=== PATIENT | female | born 1985 | race Caucasian/White ===

== ENCOUNTER → 2017-06-02 | Outpatient (CLI) | payer MEDICAID | LOC: M OUTALCOH 13:20 | PROVIDERS: ATTEND Psychiatry & Neurology Psychiatry | DX: F14.20 Cocaine dependence, uncomplicated (principal) ==

== ENCOUNTER 2017-08-19 16:00 | Outpatient (RCR) | payer SELFPAY | END 2017-09-07 | LOC: M OUTALCOH 08-21 16:00 | DX: F14.20 Cocaine dependence, uncomplicated (principal); F17.200 Nicotine dependence, unspecified, uncomplicated; F11.20 Opioid dependence, uncomplicated ==

== ENCOUNTER 2017-09-18 16:00 | Outpatient (RCR) | payer SELFPAY | END 2017-10-08 | LOC: M OUTALCOH 09-25 16:00 | DX: F14.20 Cocaine dependence, uncomplicated (principal); F17.200 Nicotine dependence, unspecified, uncomplicated; F11.20 Opioid dependence, uncomplicated ==

== ENCOUNTER 2017-10-09 16:00 | Outpatient (RCR) | payer SELFPAY | END 2017-11-05 | LOC: M OUTALCOH 10-14 16:00 | DX: F14.20 Cocaine dependence, uncomplicated (principal); F17.200 Nicotine dependence, unspecified, uncomplicated; F11.20 Opioid dependence, uncomplicated ==

== ENCOUNTER 2017-10-13 12:13 | Emergency (ER) | payer SELFPAY | END 2017-10-13 14:45 | disposition left against medical advice (07) | LOC: M ED 12:13 | DX: Z53.21 Procedure and treatment not carried out due to patient leaving prior to being seen by health care provider (principal) ==

== ENCOUNTER 2017-11-11 16:00 | Outpatient (RCR) | payer SELFPAY | END 2017-12-06 | LOC: M OUTALCOH 12-03 14:00 | DX: F14.20 Cocaine dependence, uncomplicated (principal); F17.200 Nicotine dependence, unspecified, uncomplicated; F11.20 Opioid dependence, uncomplicated | CPT/HCPCS: 90834 ==

== ENCOUNTER → 2017-11-18 | Outpatient (REF) | payer SELFPAY ==
[2017-11-18 17:14] LABS: INFLUENZA A AMPLIFICATION POSITIVE (NEGATIVE); INFLUENZA B AMPLIFICATION NEGATIVE (NEGATIVE)
== END ==
LOC: M LAB REF 16:16
DX: J11.1 Influenza due to unidentified influenza virus with other respiratory manifestations (principal)
CPT/HCPCS: 87502

== ENCOUNTER 2017-12-19 10:28 | Outpatient (RCR) | payer MEDICAID, SELFPAY | END 2018-01-05 | LOC: M OUTALCOH 10:28 | DX: F14.20 Cocaine dependence, uncomplicated (principal); F17.200 Nicotine dependence, unspecified, uncomplicated; F11.20 Opioid dependence, uncomplicated | CPT/HCPCS: 90834 ==

== ENCOUNTER 2018-01-23 15:35 | Outpatient (RCR) | payer MEDICAID | END 2018-02-05 | LOC: M OUTALCOH 02-03 09:00 | DX: F14.20 Cocaine dependence, uncomplicated (principal); F17.200 Nicotine dependence, unspecified, uncomplicated; F11.20 Opioid dependence, uncomplicated ==

== ENCOUNTER 2018-02-09 11:46 | Outpatient (RCR) | payer MEDICAID | END 2018-03-07 | LOC: M OUTALCOH 02-18 08:45 | DX: F14.20 Cocaine dependence, uncomplicated (principal); F17.200 Nicotine dependence, unspecified, uncomplicated; F11.20 Opioid dependence, uncomplicated ==

== ENCOUNTER 2018-03-09 10:33 | Outpatient (RCR) | payer MEDICAID | END 2018-04-07 | LOC: M OUTALCOH 10:33 | DX: F14.20 Cocaine dependence, uncomplicated (principal); F17.200 Nicotine dependence, unspecified, uncomplicated; F11.20 Opioid dependence, uncomplicated ==

== ENCOUNTER 2018-11-06 13:52 | Emergency (ER) | payer MEDICAID ==
[~2018-11-06] VITALS: Ht 165.1 cm; Wt 59.1 kg
[2018-11-06 13:52] VITALS: BP 134/97
[~2018-11-06 13:52] MED LIST: GABA-845 PO
[2018-11-06] MEDS ORDERED: LIDOCAINE 2% W/EPIN INJ 20ML **PRES FREE As Ordered ONE (14:20)
[2018-11-06] MEDS ORDERED: LIDOCAINE 2% W/EPIN INJ 20ML **PRES FREE INJ ONE (14:30)
[2018-11-06] MEDS ORDERED: CEPHALEXIN 500 MG CAP PO ONE (15:00)
[2018-11-06] MEDS ORDERED: DIFL150T PO (15:10)
[2018-11-06] MEDS ORDERED: KEFL500C17 PO (15:10)
== END 2018-11-06 15:17 | disposition home or self-care (01) ==
LOC: M ED 13:52
DX: S71.111A Laceration without foreign body, right thigh, initial encounter (principal); W26.0XXA Contact with knife, initial encounter; Y92.019 Unspecified place in single-family (private) house as the place of occurrence of the external cause

== ENCOUNTER 2019-01-24 17:11 | Inpatient (IN) | payer MEDICAID, OTHER ==
[~2019-01-24] VITALS: Ht 165.1 cm; Wt 59.1 kg
[~2019-01-24 17:11] MED LIST changes: +DIFL150T PO; +KEFL500C17 PO
[2019-01-24] MEDS ORDERED: RISP0.5T3 PO (17:22)
[2019-01-24] MEDS ORDERED: SERT-138 PO (17:22)
[2019-01-24] MEDS ORDERED: BUPR8SUB SL (17:22)
[2019-01-24 18:25] LABS: HEMATOCRIT 39.3 % (36.0-47.0); HEMOGLOBIN 13.2 g/dl (12.0-15.5); MEAN CORPUSCULAR HEMOGLOBIN 30.8 pg (27.0-33.0); MEAN CORPUSCULAR HGB CONC 33.6 g/dl (32.0-36.5); MEAN CORPUSCULAR VOLUME 91.6 fl (80.0-96.0); PLATELET COUNT, AUTOMATED 272 10^3/uL (150-450); RED BLOOD COUNT 4.29 10^6/uL (4.00-5.40)
[2019-01-24 18:47] LABS: AMPHETAMINES LEVEL URINE NEGATIVE (NEGATIVE); BARBITURATES URINE NEGATIVE (NEGATIVE); BENZODIAZEPINES URINE NEGATIVE (NEGATIVE); CANNABINOIDS URINE POSITIVE (NEGATIVE); COCAINE METABOLITE URINE NEGATIVE (NEGATIVE); METHADONE URINE NEGATIVE (NEGATIVE); OPIATES URINE POSITIVE (NEGATIVE); PHENCYCLIDINE URINE NEGATIVE (NEGATIVE)
[2019-01-24 19:30] LABS: ACETAMINOPHEN LEVEL < 2.0 UG/ML (10.0-30.0); ALBUMIN 4.1 GM/DL (3.2-5.2); ALT/SGPT 21 U/L (12-78); BILIRUBIN,DIRECT 0.1 MG/DL (0.0-0.2); BILIRUBIN,TOTAL 0.6 MG/DL (0.2-1.0); BLOOD UREA NITROGEN 10 MG/DL (7-18); CARBON DIOXIDE LEVEL 28 MEQ/L (21-32); CHLORIDE LEVEL 103 MEQ/L (98-107); CREATININE FOR GFR 0.84 MG/DL (0.55-1.30); ETHYL ALCOHOL (ETHANOL) < 0.003 % (0.000-0.010); GLOMERULAR FILTRATION RATE > 60.0 (>60); GLUCOSE, FASTING 95 MG/DL (70-100); SALICYLATE LEVEL 4.1 MG/DL (5.0-30.0); SODIUM LEVEL 138 MEQ/L (136-145); THYROID STIMULATING HORMONE 0.374 uIU/ML (0.358-3.740); TOTAL PROTEIN 8.3 GM/DL (6.4-8.2)
[2019-01-24 19:47] LABS: HCG, SERUM QUALITATIVE NEGATIVE (NEGATIVE)
[2019-01-24] MEDS ORDERED: MOM 30ML SUSPENSION UDC PO PRN (20:30)
[2019-01-24] MEDS ORDERED: MAALOX 30 ML SUSP *UDC PO PRN (20:30)
[2019-01-24] MEDS ORDERED: IBUP200C29 PO (21:20)
[2019-01-24 22:07] VITALS: BP 134/80
[2019-01-24] MEDS: traZODone 50 MG TAB PO PRN (22:45)
[2019-01-24] MEDS: ACETAMINOPHEN TAB 650MG DOSE (2X325MG) PO PRN (22:46)
[2019-01-25 06:48] VITALS: BP 119/73
[2019-01-25] MEDS: NICOTINE 21MG/24HR 1 EA TRANSDERMAL TD PRN (09:31)
--- NOTE | 2019-01-25 10:04 | HPEPDOC ---
General Date of Admission January 24, 2019 at 20:17 Attending Physician: BRYAN BROWER MD Chief Complaint The patient is a 33-year-old female admitted with a reason for visit of Unspecified Depressive D/O. Source: Patient, RN/MD Exam Limitations: No limitations Timing/Duration: Unsure Severity: Moderate Associated Symptoms: Rash History of Present Illness Patient is a 33 year old patient, with past medical history significant for polysubstance abuse with cocaine and heroine, and also nicotine dependence, who presents to the emergency room on account of suicidal ideation. It is documen kelsey. Patient was threatening to hurt self with her knife at home and girlfriend called the police. On police arrival, patient was agitated and looked aggressive. On evaluation, she complains of bilateral hand swelling and lesions for 1 week. Patient reports she had a relapse with heroine use 4 days ago. She denies sharing needles with anyone. On admit HIV and hepatitis C panels were offered and patient declined this morning she is willing to be tested Home Medications Scheduled Buprenorphine HCl (Buprenorphine HCl) 8 Mg Tab.subl, 8 MG SL BID for , (Reported) Risperidone (Risperidone) 0.5 Mg Tablet, 0.5 MG PO DAILY, (Reported) Sertraline HCl (Sertraline HCl) 100 Mg Tablet, 200 MG PO DAILY, (Reported) Scheduled PRN Ibuprofen (Ibuprofen) 200 Mg Capsule, 800 MG PO Q8H PRN for PAIN, (Reported) Allergies Coded Allergies: No Known Allergies (Unverified , 10/13/17) Past Medical History Medical History Heroine use Depression Anxiety Nicotine dependence Cocaine abuse Alcohol abuse Surgical History Femoral laceration repair Family History Denies family history Social History Smokes half a pack of cigarettes per day, denies alcohol use, admits to prior cocaine abuse and less heroin use was 4 days ago. A-FIB/CHADSVASC A-FIB History Current/History of A-Fib/PAF?: No Current Oral Anticoagulant The: No Review of Systems Other systems A 10 point pertinent ROS was completed, negative except as noted in the history of presenting illness Physical Examination General Exam: Positive: Alert, No Acute Distress Eye Exam: Positive: PERRLA, EOMI ENT Exam: Positive: Atraumatic, Mucous membr. moist/pink Neck Exam: Positive: Supple, +2 carotid pulse wo bruit; Negative: JVD, thyromegaly Chest Exam: Positive: Clear to auscultation, Normal air movement; Negative: Rales, Rhonchi, Wheezing Heart Exam: Positive: Rate Normal, Regular Rhythm, Normal S1, Normal S2 Abdomen Exam: Positive: Normal bowel sounds, Soft; Negative: Tenderness, Hepatospenomegaly Extremity Exam: Positive: Normal pulses; Negative: Clubbing, Cyanosis, Edema, Tenderness Skin Exam: Positive: Nl turgor and temperature, Rash, Lesion (to bilateral hands with erythema and swelling. Also present to legs. Needle track pfeiffer present to left elbow) Neuro Exam: Positive: Normal Speech Psych Exam: Positive: Mental status NL, Mood NL Vital Signs Vital Signs Date Time Temp Pulse Resp B/P (MAP) Pulse Ox O2 Delivery O2 Flow Rate FiO2 01/25/19 06:48 97.5 68 14 119/73 (88) 01/24/19 22:07 98 01/24/19 21:01 Room Air Laboratory Data Labs 24H Laboratory Tests 2 01/24/19 18:14: Nucleated Red Blood Cells % (auto) 0.0, Anion Gap 7L, Glomerular Filtration Rate > 60.0, Calcium Level 9.0, Aspartate Amino Transf (AST/SGOT) 31, Alanine Aminotransferase (ALT/SGPT) 21, Alkaline Phosphatase 102, Total Bilirubin 0.6, Direct Bilirubin 0.1, Total Protein 8.3H, Albumin 4.1, Albumin/Globulin Ratio 0.98L, Thyroid Stimulating Hormone (TSH) 0.374, Human Chorionic Gonadotropin, Qual NEGATIVE, Salicylates Level 4.1L, Urine Amphetamines Screen NEGATIVE, Urine Benzodiazepines Screen NEGATIVE, Urine Opiates Screen POSITIVEH, Urine Methadone Screen NEGATIVE, Acetaminophen Level < 2.0L, Urine Barbiturates Screen NEGATIVE, Urine Phencyclidine Screen NEGATIVE, Urine Cocaine Metabolite Screen NEGATIVE, Urine Cannabinoids Screen POSITIVEH, Ethyl Alcohol Level < 0.003 CBC/BMP Laboratory Tests 01/24/19 18:14 Red Blood Count 4.29, Mean Corpuscular Volume 91.6, Mean Corpuscular Hemoglobin 30.8, Mean Corpuscular Hemoglobin Concent 33.6, Red Cell Distribution Width 13.3 Assessment/Plan Cellulitis -Started on antibiotic therapy with Keflex -Blood culture given reported continued heroin use Heroine abuse on Suboxone -Management by primary team Suicide Ideation -Management by primary team DVT prophylaxis -patient is frequently ambulatory and no DVT prophylaxis indicated at this time Plan / VTE VTE Prophylaxis Ordered?: No VTE Exclusion Mechanical Proph: Low Risk for VTE NITZA WALKER January 25, 2019 10:04
[2019-01-25] MEDS: CEPHALEXIN 500 MG CAP PO SCH ×2 (14:28→18:23)
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
[2019-01-25] MEDS: BUPRENORPHINE/NALOXONE 8-2MG SUBLINGUAL TABLET(SUBOXONE) SL SCH ×2 (16:59→21:17)
[2019-01-25 18:07] VITALS: BP 118/73
[2019-01-25] MEDS: ACETAMINOPHEN TAB 650MG DOSE (2X325MG) PO PRN (18:23)
[2019-01-25] MEDS: traZODone 50 MG TAB PO PRN (21:58)
[2019-01-26] MEDS: CEPHALEXIN 500 MG CAP PO SCH ×6 (00:22→23:48)
[2019-01-26 06:41] VITALS: BP 98/60
[2019-01-26] MEDS: ADDERALL 5 MG TAB PO SCH (08:38)
[2019-01-26] MEDS: SERTRALINE 100 MG TAB PO SCH (08:39)
[2019-01-26] MEDS: NICOTINE 21MG/24HR 1 EA TRANSDERMAL TD PRN (08:41)
[2019-01-26] MEDS: BUPRENORPHINE/NALOXONE 8-2MG SUBLINGUAL TABLET(SUBOXONE) SL SCH ×2 (10:02→16:14)
--- NOTE | 2019-01-26 14:59 | MHIPNPDOC ---
[facility] Progress Note Progress Note DATE OF SERVICE: 01/26/19 HISTORY: Chief Complaint "I was trying to leave, but she won't let me go. Now we're OK" History of Present Illness HISTORY OF THE PRESENT ILLNESS: Patient is a 33 -year-old , female, who according to the ED report: " Pt brought into ED via [facility] by Shawn Ordoñez. Pt's g/f called police stating that pt was threatening to harm herself with a knife. Per police, when arrived at the residence, pt was aggitated and standing on the front porch looking as if she was going to try and fight them. Shawn Kevin's did report there was a little bit of a "tussel" but no major event took place. Police stated they never saw a knife while they were there and pt denied being SI/HI. When interviewing pt, she disclosed relationship problems with her girlfriend, stating that she is trying to leave the relationship but when she tries her g/f goes "crazy" and "doesn't like being alone" so she "makes up these stories about me." Pt states she never said anything about wanting to harm herself and has no hx of SI, intent, and/or attempts. Pt has no inpatient mental health stays. Pt is dx with anxiety and depression. Is seen at [facility] by Drew 2x/week and is schedule to see her this upcoming week. She see's Theron Aj for psychaitry at [facility] and is currently on respirdone, zoloft, and suboxone. This interviewer asked pt if it was okay to contact pt's g/f for collateral in formation about the situation that happened today. Pt requested no information be given to her g/f and for ED staff to not contact g/f VITAL SIGNS: See below. NEW TEST RESULTS: See below CURRENT MEDICATIONS: See below. MENTAL STATUS EXAMINATION: Patient is a 33 year old female, who is alert, cooperative, pleasant, dressed in hospital clothes. Speech: Is spontaneous and fluent, normal rate, rhythm, tone and volume. Language skills are good. Thought processes including: intact, logical, linea. Thought content: goal orientated, wants to go back to work with [employer], wants to go to marital counseling with her GF and has considered marriage and children in the future.. Abstract reasoning, and computation: good ability to abstract. Description of associations: intact. Description of abnormal or psychotic thoughts: denies SI, denies HI, denies AV hallucinations, denies thought delusions. Judgment: good Insight: improving. Orientation: x 4. Recent and remote memory: intact. Attention span and concentration: good. Language: Australian. Fund of knowledge: full. Mood: euthymic. Affect: congruent with mood, full, appropriate. DIAGNOSES: 1. Major Depressive Disorder, recurrent 2. Heroin use disorder ASSESSMENT: Patient is less anxious, her mood and affect are brighter, she is not suicidal, she wants to live and has lots of plans for the future. she is appreciative of her GF, she says she is a great support and she tells me she will go to NA meetings, she will stay away from drugs, she wants to do some artsy, crafty stuff at home because she found out that she likes it and it keeps her thoughts away from the darkness. she wants to leave, she wants to go back to work for [employer], she would like to make a career within that [employer], she likes what she does. MANAGEMENT PLAN: Discharge home tomorrow TIME SPENT: 20 minutes. Vital Signs Vital Signs Date Time Temp Pulse Resp B/P (MAP) Pulse Ox O2 Delivery O2 Flow Rate FiO2 01/26/19 09:04 Room Air 01/26/19 06:41 98.2 58 14 98/60 (73) 01/24/19 22:07 98 Current Medications Current Medications Acetaminophen (Tylenol Tab) 650 mg Q6HP PRN PO HEADACHE or DISCOMFORT Last administered on 01/25/19at 18:23; Start 01/24/19 at 20:30 Al Hydrox/Mg Hydrox/Simethicone (Mylanta) 30 ml Q4HP PRN PO HEARTBURN/INDIGESTION; Start 01/24/19 at 20:30 Amphetamine/ Dextroamphetamine (Adderall) 20 mg QAM PO Last administered on 01/26/19at 08:38; Start 01/26/19 at 09:00 Buprenorphine/ Naloxone (Suboxone 8/2mg) 1 tab BID SL Last administered on 01/26/19at 10:02; Start 01/25/19 at 16:00 Cephalexin Monohydrate (Keflex) 500 mg Q6H PO Last administered on 01/26/19at 12:02; Start 01/25/19 at 12:00; Stop 01/30/19 at 11:59 Home Med (Med Rec Complete!) ASDIRECTED XX ; Start 01/24/19 at 21:30; Stop 01/24/19 at 21:30; Status DC Magnesium Hydroxide (Milk Of Magnesia) 30 ml DAILYPRN PRN PO CONSTIPATION; Start 01/24/19 at 20:30 Nicotine (Nicoderm Cq 21mg) 1 patch DAILY TD ; Start 01/27/19 at 09:00 Nicotine (Nicoderm Cq 21mg) 1 patch DAILY PRN TD craving Last administered on 01/26/19at 08:41; Start 01/24/19 at 20:30; Stop 01/26/19 at 10:58; Status DC Sertraline HCl (Zoloft) 200 mg DAILY PO Last administered on 01/26/19at 08:39; Start 01/26/19 at 09:00 Trazodone HCl (Desyrel) 50 mg QHSP PRN PO INSOMNIA Last administered on 01/25/19at 21:58; Start 01/24/19 at 20:30 Allergies Coded Allergies: No Known Allergies (Unverified , 10/13/17) A-FIB/CHADSVASC A-FIB History Current/History of A-Fib/PAF?: No Current Oral Anticoagulant The: No Age/Risk Factor Scoring CHADSVASC: CHADSVASC Response (Comments) Value Age Risk Factor Age < 65 years old 0 Gender Risk Factor Female 1 Hx of CHF No 0 Hx of HTN No 0 Hx of Stroke/TIA/or VTE No 0 Hx of Diabetes No 0 Hx of Vascular Disease No 0 Total 1 Treatment Treatment ordered: NONE Reason Anticoagulant not given: Not indicated/[id number] FELICITY MAE MD January 26, 2019 14:58
[2019-01-26] MEDS: ACETAMINOPHEN TAB 650MG DOSE (2X325MG) PO PRN (16:15)
[2019-01-26 18:00] VITALS: BP 126/78
[2019-01-26] MEDS: traZODone 50 MG TAB PO PRN (21:01)
[2019-01-27] MEDS: CEPHALEXIN 500 MG CAP PO SCH (06:29)
[2019-01-27 06:52] VITALS: BP 101/55
[2019-01-27] MEDS: BUPRENORPHINE/NALOXONE 8-2MG SUBLINGUAL TABLET(SUBOXONE) SL SCH (08:27)
[2019-01-27] MEDS: ADDERALL 5 MG TAB PO SCH (08:27)
[2019-01-27] MEDS: SERTRALINE 100 MG TAB PO SCH (08:28)
[2019-01-27] MEDS ORDERED: CEPH500C PO (08:35)
[2019-01-27] MEDS ORDERED: SERT-138 PO (08:35)
[2019-01-27] MEDS ORDERED: Amphetamine/Dextroamphetamine PO (08:35)
[2019-01-27] MEDS ORDERED: TRAZO50TA PO (08:35)
[2019-01-27] MEDS ORDERED: NICO21PAT TD (08:35)
[2019-01-27] MEDS ORDERED: NICOTINE 21MG/24HR 1 EA TRANSDERMAL TD SCH (09:00)
[2019-01-27 14:11] LABS: HEPATITIS C QUANTITATION HCV Not Detected IU/mL (.)
--- NOTE | 2019-01-27 18:46 | MHDSPDOC ---
[facility] Discharge Summary Discharge Summary DATE OF ADMISSION: January 24, 2019 at 20:17 DATE OF DISCHARGE: January 27, 2019 at 11:40 DISCHARGE DIAGNOSES: 1. Major Depressive Disorder, recurrent 2. Heroin use disorder REASON FOR ADMISSION: HISTORY: Chief Complaint "I was trying to leave, but she won't let me go. Now we're OK" HISTORY OF THE PRESENT ILLNESS: Patient is a 33 -year-old , female, who according to the ED report: " Pt brought into ED via [facility] by Shawn Ordoñez. Pt's g/f called police stating that pt was threatening to harm herself with a knife. Per police, when arrived at the residence, pt was aggitated and standing on the front porch looking as if she was going to try and fight them. Shawn Kevin's did report there was a little bit of a "tussel" but no major event took place. Police stated they never saw a knife while they were there and pt denied being SI/HI. When interviewing pt, she disclosed relationship problems with her girlfriend, stating that she is trying to leave the relationship but when she tries her g/f goes "crazy" and "doesn't like being alone" so she "makes up these stories about me." Pt states she never said anything about wanting to harm herself and has no hx of SI, intent, and/or attempts. Pt has no inpatient mental health stays. Pt is dx with anxiety and depression. Is seen at [facility] by Drew 2x/week and is schedule to see her this upcoming week. She see's Theron Stewart for psychaitry at [facility] and is currently on respirdone, zoloft, and suboxone. This interviewer asked pt if it was okay to contact pt's g/f for collateral information about the situation that happened today. Pt requested no information be given to her g/f and for ED staff to not contact g/f " CONSULTANTS INVOLVED: None but Claudy Sheldon Np, started her on oral antibiotics for soft tissue infection in her right hand TREATMENT AND PROGRESS ON THE UNIT : When this commercial insurance underwriter interviewed the patient yesterday, she said she had over reacted when she had an argument with her current GF. She said that her GF has been an incredible support for her and that she used IV heroin last week. She shows me where she has needle tracks on her hand which is the hard that is swollen and erythematous. She has denied suicidal ideeeation but she reported symptoms of depression for a long period of time. She described a very difficult childhood, adolescence and young adulthood with mom that uses drugs and a alcoholic father. She mentioned that she left the house because her mother kept using drugs and she couldn't continue to see her like that. she ended up being homeless and using drugs in the streets of [place]. She says that her GF has been very understanding of hr past and her substance abuse and she has had the pportunity of taking to her GF and her GF is not upset with her anymore. She wants to have a serious relationship with her, they have been together for 3 years and she would like to get to her GF in the future and would like to have children with her. She says she likes her job and she would like to continue working for the same company but if she shows that she is reliable as a worker, maybe they can promote her. Upon admission she said she was taking Buprenorphine 04/09 twice/day, she has been going to DR. Davalos for her buprenorphine treatment. She was started on Sertraline 200 mgs PO daily. She asked to be started on Adderall 20 mgs PO BID and she got it in here but the scripts didn't go through and she said it was because she had received that medication recently and she still had it at home. She was taking Risperdal but she didn't show any signs of psychosis or angry/impulsive/aggressive behavior while she was at our unit, therefore this commercial insurance underwriter decided not to order it. She had a good response to medications, she didn't develop side effects to them. She was stable to be discharged, she was not homicidal, not suicidal and not psychotic at the time of her discharge. She was future orientated, wanted to go back to work today. HOSPITAL COURSE: As above DISCHARGE ASSESSMENT: She had a good response to medications, she didn't develop side effects to them. She was stable to be discharged, she was not homicidal, not suicidal and not psychotic at the time of her discharge. She was future orientated, wanted to go back to work today. MENTAL STATUS EXAMINATION ON DISCHARGE: General Appearance: unkempt, appears stated age, hospital scrubs/clothing, other (needle tracks and cellulitis on her right hand) Build: average Demeanor: average Eye Contact: average Activity: anxious Behavior: cooperative Speech: clear, spontaneous, reg/rate,rhythm,volume Mood: euthymic, anxious Affect: full, appropriate, congruent, anxious Thought Process: logical/linear Thought Content (Delusions): denies SI, HI, AVH, denies paranoid, grandiose or bizarre delusions Thought Content (Other): denies OCD symptoms, denies phobias Thought Content (Aggressive): none reported Perception (Hallucinations): none reported Perception (Other): none reported Cognition (Impairment of): none reported Cognition(Intelligence Est.): average Oriented: Awake, Alert, Oriented times three Insight: fair Judgment: Poor Psychosis: Denies Diagnoses 1. Major Depressive Disorder, recurrent 2. Heroin use disorder MEDICATIONS ON DISCHARGE: Scheduled Buprenorphine HCl (Buprenorphine HCl) 8 Mg Tab.subl, 8 MG SL BID for , (Reported) Cephalexin (Cephalexin) 500 Mg Capsule, 500 MG PO Q6H for soft tissue infection, #28 Nicotine (Nicotine Patch) 21 Mg Patch.td24, 1 PATCH TD DAILY for nicotine cravings, #7 Risperidone (Risperidone) 0.5 Mg Tablet, 0.5 MG PO DAILY, (Reported) Sertraline HCl (Sertraline HCl) 100 Mg Tablet, 200 MG PO DAILY for depression, #14 [Amphetamine/Dextroamphetamine] 5 MG TAB, 20 MG PO QAM for adhd, #28 Scheduled PRN Ibuprofen (Ibuprofen) 200 Mg Capsule, 800 MG PO Q8H PRN for PAIN, (Reported) Trazodone HCl (Trazodone HCl) 50 Mg Tablet, 50 MG PO QHSP PRN for INSOMNIA, #7 PLAN/FOLLOWUP ARRANGEMENTS: Follow Up Care Education Label * Medical * Medical Follow Up [facility] * Established With This Provider No * Therapist DR. JEFF * Date Feb 08, 2019 * Time 15:30 * Address of Clinic or Practice [address] [facility] [facility] [address] * Follow Up Care Education Label * Mental Health Appt 1 * [facility] * Established With This Provider Yes * Therapist PABLO * Date February 02, 2019 * Time 11:30 * Address of Clinic or Practice [address] [place] [address] * Follow Up Care Education Label * Chemical Dependency Appt1 * Chemical Dependency Dr. Davalos * Established With This Provider Yes * Therapist DR. DAVALOS * Date January 28, 2019 * Time 08:40 * Follow Up Care Education Label * Mental Health Appt 2 * [facility] * Established With This Provider No * Therapist KEON STEWART * Date Mar 02, 2019 * Time The amount of time spent in the coordination of care for this patient was approximately 30 minutes. Vital Signs/I&Os Vital Signs Date Time Temp Pulse Resp B/P (MAP) Pulse Ox O2 Delivery O2 Flow Rate FiO2 01/27/19 08:35 Room Air 01/27/19 06:52 98.0 61 12 101/55 (70) 01/24/19 22:07 98 Laboratory Data Microbiology Microbiology 01/25/19 Blood Culture - Preliminary, Resulted Medications Scheduled Buprenorphine HCl (Buprenorphine HCl) 8 Mg Tab.subl, 8 MG SL BID for , (Reported) Cephalexin (Cephalexin) 500 Mg Capsule, 500 MG PO Q6H for soft tissue infection, #28 Nicotine (Nicotine Patch) 21 Mg Patch.td24, 1 PATCH TD DAILY for nicotine cravings, #7 Risperidone (Risperidone) 0.5 Mg Tablet, 0.5 MG PO DAILY, (Reported) Sertraline HCl (Sertraline HCl) 100 Mg Tablet, 200 MG PO DAILY for depression, #14 [Amphetamine/Dextroamphetamine] 5 MG TAB, 20 MG PO QAM for adhd, #28 Scheduled PRN Ibuprofen (Ibuprofen) 200 Mg Capsule, 800 MG PO Q8H PRN for PAIN, (Reported) Trazodone HCl (Trazodone HCl) 50 Mg Tablet, 50 MG PO QHSP PRN for INSOMNIA, #7 Allergies Coded Allergies: No Known Allergies (Unverified , 10/13/17) FELICITY MAE MD January 27, 2019 18:25
--- NOTE | 2019-01-28 14:00 | IPN ---
DATE: 01/26/2019 33-year-old female on the inpatient mental health unit with a history of intravenous (IV) heroin abuse who has needle track pfeiffer on both lower arms, some reddened, tender. She was started on Keflex. She is showing improvement. She states they feel better. Otherwise review of systems was negative. PHYSICAL EXAM: 33-year-old cooperative female in no acute distress. Blood pressure 118/73, pulse 77, respirations 16, temperature 98.9. Patient is alert and oriented times three. Pupils equal and reactive to light. Extraocular movements intact. Pharynx: Tongue and gums pink and moist. Tongue is midline. Neck is supple without lymphadenopathy. No thyromegaly. No goiter. Carotids 2+ without bruit. Jugular venous pressure is below clavicles. Chest is clear to auscultation without wheeze or retractions. Heart is regular. Abdomen benign. Bowel sounds are positive. Genital/Rectal: Not done. Extremities: No cyanosis, clubbing or edema. Both lower arms have reddened areas and rash from track pfeiffer, left more than right. No drainage noted. Hand debarker operator equal. Peripheral pulses equal and palpable bilaterally. IMPRESSION AND PLAN: Cellulitis, less reddened. No drainage. Improving with Keflex, continue. Followup on blood cultures. Preliminary show gram-positive cocci in clusters. Heroin abuse. Management by psychiatry. Acute psychiatric issues. Per psychiatry. Continue Keflex. Followup on blood culture.
== END 2019-01-27 11:40 | disposition home or self-care (01) | DRG 751 ==
LOC: M ED 17:11 → M ED INP 20:17 → M PSY 21:05
PROVIDERS: ADMIT Psychiatry & Neurology Child & Adolescent Psychiatry; ATTEND Psychiatry & Neurology Psychiatry
DX: F33.9 Major depressive disorder, recurrent, unspecified (principal); R45.851 Suicidal ideations; F11.90 Opioid use, unspecified, uncomplicated; Z79.899 Other long term (current) drug therapy; F41.9 Anxiety disorder, unspecified; L03.113 Cellulitis of right upper limb; L03.114 Cellulitis of left upper limb

== ENCOUNTER 2019-12-03 20:01 | Emergency (ER) | payer MEDICAID, OTHER ==
[~2019-12-03] VITALS: Ht 165.1 cm; Wt 59.1 kg
[~2019-12-03 20:01] MED LIST changes: +Amphetamine/Dextroamphetamine PO; +BUPR8SUB SL; +CEPH500C PO; +IBUP200C29 PO; +NICO21PAT TD; +RISP0.5T3 PO; +SERT-138 PO; +TRAZ1TAB10 PO
[2019-12-03 22:17] LABS: AMPHETAMINES LEVEL URINE NEGATIVE (NEGATIVE); BARBITURATES URINE NEGATIVE (NEGATIVE); BENZODIAZEPINES URINE NEGATIVE (NEGATIVE); CANNABINOIDS URINE POSITIVE (NEGATIVE); COCAINE METABOLITE URINE POSITIVE (NEGATIVE); METHADONE URINE NEGATIVE (NEGATIVE); OPIATES URINE POSITIVE (NEGATIVE); PHENCYCLIDINE URINE NEGATIVE (NEGATIVE)
[2019-12-03 23:00] LABS: HEMATOCRIT 42.1 % (36.0-47.0); HEMOGLOBIN 14.3 g/dl (12.0-15.5); MEAN CORPUSCULAR HEMOGLOBIN 31.2 pg (27.0-33.0); MEAN CORPUSCULAR VOLUME 91.7 fl (80.0-96.0); PLATELET COUNT, AUTOMATED 255 10^3/uL (150-450); RED BLOOD COUNT 4.59 10^6/uL (4.00-5.40)
[2019-12-03 23:27] LABS: ACETAMINOPHEN LEVEL < 2.0 UG/ML (10.0-30.0); ALBUMIN 4.6 GM/DL (3.2-5.2); ALT/SGPT 16 U/L (12-78); BILIRUBIN,DIRECT 0.2 MG/DL (0.0-0.2); BILIRUBIN,TOTAL 0.6 MG/DL (0.2-1.0); BLOOD UREA NITROGEN 9 MG/DL (7-18); CALCIUM LEVEL 9.4 MG/DL (8.5-10.1); CARBON DIOXIDE LEVEL 26 MEQ/L (21-32); CHLORIDE LEVEL 102 MEQ/L (98-107); CREATININE FOR GFR 0.78 MG/DL (0.55-1.30); ETHYL ALCOHOL (ETHANOL) < 0.003 % (0.000-0.010); GLOMERULAR FILTRATION RATE > 60.0 (>60); GLUCOSE, FASTING 83 MG/DL (70-100); SALICYLATE LEVEL 4.7 MG/DL (5.0-30.0); SODIUM LEVEL 139 MEQ/L (136-145); THYROID STIMULATING HORMONE 0.457 uIU/ML (0.358-3.740); TOTAL PROTEIN 8.1 GM/DL (6.4-8.2)
[2019-12-04 00:25] VITALS: BP 143/89
== END 2019-12-04 00:27 | disposition left against medical advice (07) ==
LOC: M ED 20:01
DX: F19.10 Other psychoactive substance abuse, uncomplicated (principal); F91.9 Conduct disorder, unspecified; S11.91XA Laceration without foreign body of unspecified part of neck, initial encounter; S50.811A Abrasion of right forearm, initial encounter; X58.XXXA Exposure to other specified factors, initial encounter; Y92.89 Other specified places as the place of occurrence of the external cause; F33.9 Major depressive disorder, recurrent, unspecified; F41.9 Anxiety disorder, unspecified; Z79.899 Other long term (current) drug therapy
CPT/HCPCS: 36415; 80048; 80076; 80307; 84443; 85027; 99284; G0480

== ENCOUNTER → 2020-02-11 | Outpatient (CLI) | payer OTHER, MEDICAID ==
[2020-02-11 15:26] LABS: HEMATOCRIT 44.5 % (36.0-47.0); MEAN CORPUSCULAR HEMOGLOBIN 31.3 pg (27.0-33.0); MEAN CORPUSCULAR HGB CONC 33.7 g/dl (32.0-36.5); MEAN CORPUSCULAR VOLUME 92.7 fl (80.0-96.0); PLATELET COUNT, AUTOMATED 291 10^3/uL (150-450); WHITE BLOOD COUNT 9.1 10^3/uL (4.0-10.0)
[2020-02-11 15:44] LABS: HEMOGLOBIN A1c 5.9 %
[2020-02-11 16:01] LABS: ALBUMIN 4.2 GM/DL (3.2-5.2); ALT/SGPT 23 U/L (12-78); BILIRUBIN,TOTAL 0.2 MG/DL (0.2-1.0); BLOOD UREA NITROGEN 12 MG/DL (7-18); CALCIUM LEVEL 9.4 MG/DL (8.5-10.1); CARBON DIOXIDE LEVEL 30 MEQ/L (21-32); CHLORIDE LEVEL 103 MEQ/L (98-107); CHOLESTEROL LEVEL 155 MG/DL (<200); CHOLESTEROL RISK RATIO 4.305 (<5); CREATININE FOR GFR 0.86 MG/DL (0.55-1.30); FREE THYROXINE INDEX 2.3 % (1.3-4.8); GLOMERULAR FILTRATION RATE > 60.0 (>60); GLUCOSE, FASTING 84 MG/DL (70-100); HDL CHOLESTEROL 36 MG/DL (>40); LDL CHOLESTEROL 89 MG/DL (<100); NON-HDL-C 119 MG/DL; POTASSIUM SERUM 3.7 MEQ/L (3.5-5.1); SODIUM LEVEL 140 MEQ/L (136-145); T UPTAKE 31 % (30-39); THYROID STIMULATING HORMONE 0.366 uIU/ML (0.358-3.740); THYROXINE (T4) 7.5 UG/DL (4.5-12.0); TOTAL PROTEIN 8.2 GM/DL (6.4-8.2); TRIGLYCERIDES LEVEL 152 MG/DL (<150)
[2020-02-11 16:10] LABS: TOTAL 25(OH) VITAMIN D 35.4 NG/ML (30.0-100.0)
--- NOTE | 2020-02-11 21:31 | ECGEPIP ---
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 No prior ECG available for comparison at the time of interpretation. Electronically Signed on 02-11-2020 21:31:15 EDT by Azar Connell
== END ==
LOC: M LAB 14:45
PROVIDERS: ATTEND Psychiatry & Neurology Child & Adolescent Psychiatry
DX: F32.9 Major depressive disorder, single episode, unspecified (principal)

== ENCOUNTER 2020-07-19 23:41 | Emergency (ER) | payer MEDICAID, OTHER ==
[~2020-07-19] VITALS: Ht 165.1 cm; Wt 59.1 kg
[2020-07-20] MEDS ORDERED: LIDOCAINE W/EPINEPHRINE 1% 20ML VIAL SC ONE (00:30)
[2020-07-20 01:32] VITALS: BP 99/54
== END 2020-07-20 01:30 | disposition home or self-care (01) ==
LOC: M ED 23:41
DX: S51.812A Laceration without foreign body of left forearm, initial encounter (principal); W26.0XXA Contact with knife, initial encounter; Y92.093 Driveway of other non-institutional residence as the place of occurrence of the external cause; F19.10 Other psychoactive substance abuse, uncomplicated; F17.210 Nicotine dependence, cigarettes, uncomplicated; Z87.828 Personal history of other (healed) physical injury and trauma; Z79.899 Other long term (current) drug therapy

== ENCOUNTER 2020-11-04 20:45 | Inpatient (IN) | payer MEDICAID, OTHER ==
[~2020-11-04] VITALS: Ht 165.1 cm; Wt 58.8 kg
[~2020-11-04 20:45] MED LIST changes: +RISP-7 PO; -RISP0.5T3 PO
[2020-11-04] MEDS ORDERED: ACETAMINOPHEN TAB 650MG DOSE (2X325MG) PO ONE (21:05)
[2020-11-04] MEDS ORDERED: LORazepam 0.5 MG TAB PO ONE (21:05)
[2020-11-04] MEDS ORDERED: ZOLO100T PO (21:07)
[2020-11-04 21:54] LABS: HEMATOCRIT 36.4 % (36.0-47.0); HEMOGLOBIN 12.3 g/dl (12.0-15.5); MEAN CORPUSCULAR HEMOGLOBIN 30.2 pg (27.0-33.0); MEAN CORPUSCULAR HGB CONC 33.8 g/dl (32.0-36.5); MEAN CORPUSCULAR VOLUME 89.4 fl (80.0-96.0); PLATELET COUNT, AUTOMATED 197 10^3/uL (150-450); RED BLOOD COUNT 4.07 10^6/uL (4.00-5.40); WHITE BLOOD COUNT 9.9 10^3/uL (4.0-10.0)
[2020-11-04 22:04] LABS: AMPHETAMINES LEVEL URINE NEGATIVE (NEGATIVE); BARBITURATES URINE NEGATIVE (NEGATIVE); BENZODIAZEPINES URINE NEGATIVE (NEGATIVE); CANNABINOIDS URINE NEGATIVE (NEGATIVE); COCAINE METABOLITE URINE NEGATIVE (NEGATIVE); METHADONE URINE NEGATIVE (NEGATIVE); OPIATES URINE POSITIVE (NEGATIVE); PHENCYCLIDINE URINE NEGATIVE (NEGATIVE)
[2020-11-04 22:14] LABS: HCG, SERUM QUALITATIVE NEGATIVE (NEGATIVE)
[2020-11-04 22:16] LABS: ACETAMINOPHEN LEVEL 11.3 UG/ML (10.0-30.0); ALBUMIN 4.2 GM/DL (3.2-5.2); ALT/SGPT 20 U/L (12-78); BILIRUBIN,DIRECT 0.2 MG/DL (0.0-0.2); BILIRUBIN,TOTAL 0.5 MG/DL (0.2-1.0); BLOOD UREA NITROGEN 13 MG/DL (7-18); CALCIUM LEVEL 9.6 MG/DL (8.5-10.1); CARBON DIOXIDE LEVEL 25 MEQ/L (21-32); CHLORIDE LEVEL 103 MEQ/L (98-107); CREATININE FOR GFR 1.09 MG/DL (0.55-1.30); ETHYL ALCOHOL (ETHANOL) < 0.003 % (0.000-0.010); GLOMERULAR FILTRATION RATE > 60.0 (>60); GLUCOSE, FASTING 117 MG/DL (70-100); POTASSIUM SERUM 3.9 MEQ/L (3.5-5.1); SALICYLATE LEVEL 4.8 MG/DL (5.0-30.0); SODIUM LEVEL 136 MEQ/L (136-145); THYROID STIMULATING HORMONE 0.491 uIU/ML (0.358-3.740); TOTAL PROTEIN 7.6 GM/DL (6.4-8.2)
[2020-11-04] MEDS ORDERED: ZIPRASIDONE 20MG CAPSULE (GEODON) PO ONE (22:45)
[2020-11-04] MEDS ORDERED: MAALOX 30 ML SUSP *UDC PO PRN (23:05)
[2020-11-04] MEDS ORDERED: MOM 30ML SUSPENSION UDC PO PRN (23:05)
[2020-11-04 23:50] LABS: RSV AMPLIFICATION NEGATIVE (NEGATIVE)
[2020-11-05 01:32] VITALS: BP 110/72
[2020-11-05] MEDS: traZODone 50 MG TAB PO PRN (01:41)
[2020-11-05] MEDS: NICOTINE 21MG/24HR 1 EA TRANSDERMAL TD SCH (09:50)
--- NOTE | 2020-11-05 15:47 | MHHPEPDOC ---
General Date Of Admission: Nov 05, 2020 Legal Status: 9.39 Chief Complaint "35-year-old female who states "people were in my house.". History of Present Illness HISTORY OF THE PRESENT ILLNESS: Patient is a 35 -year-old , female, who was brought to the emergency room by police, stating people were in my house." States she called the police because the father of her ex-girlfriend was in her house on another floor. Patient lives alone. She broke up with her girlfriend the day before yesterday. It been with that girlfriend for 4 years and the girl is seeing someone else. She states that Galdino, the father of her ex-girlfriend doesn't like her and was trying to scare her. Apparently, she also called the police and said there were policemen when authentic police arrived, they couldn't find either Galdino or these other policemen. Patient has a history of suicidal ideation and paranoia and has been taken to [facility] see for that purpose. In addition, she was admitted to the [facility] you in January 2019 for a short period of time. She has a history of multiple calls to the police. When the police arrived at her house. She had a knife. She claimed that the other police would been in her house and climbed out the window. She states people use ladders to get into her apartment. She has been treated at [facility]. According to her and sees Lynne not telling the facts when she gives history she has a GED education. 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 She has no legal problems. States she used to be on heroin for a year but quit a year ago. She claims she has no medical history or surgical history or neurological history. She was found to have lacerations on her neck and chest. Her mother's had to call the police for these symptoms previously and her use of knives. Previously when the Gema a rrived at her house. She did have 9. She denies hospitalizations, but that is not true. She has been hospitalized at [facility] see and hear. Patient states she is not having visual or auditory hallucinations that in fact Galdino was really in her house.. Psychiatric Review of Systems Depression (2 or more weeks): suicidal thoughts Leigh (4 or more days of): denies Psychosis: auditory hallucination, visual hallucination, paranoia PTSD: denies Anxiety: situational anxiety Anxiety/ 6 months or more of: difficulty concentrating Past Psychiatric History Previous Psychiatric Diagnosis: Unspecified psychosis. Opiate dependence and abuse. Previous Psychiatric Admissions:, [facility] and [facility]. Suicide Attempts: None described. . Psychiatric Follow-up: Most likely not compliant with follow-up. Psychiatric medications:. No present medications but will look up records. Past Medical History Medical Problems Noncontributory Head Injury: No Seizures: No Hospitalizations: Yes Surgeries: No Family Medical/Psychiatric HX Psychiatric Disorders: No Addiction: No Suicide Attemps/Completions: No Addiction History opioids, heroin Social History Childhood: Noncontributory. Abuse/Trauma: Contributory. Current Living Situation:. She lives alone in an apartment. Education: GED. Employment: None at this time. Social Support:. Mother. Legal: None. Marital:, Single. Mental Status Examination General Appearance: unkempt Build: average Demeanor: average Eye Contact: average Activity: average Behavior: cooperative Speech: slow Mood: euthymic Affect: flat Thought Content (Delusions): persecutory, paranoia Thought Content (Other): internal-stimuli Thought Content (Aggressive): aggressive (assess) Perception (Hallucinations): auditory, visual Perception (Other): none reported Cognition (Impairment of): ability to abstract Cognition(Intelligence Est.): average Insight: poor Judgment: Poor Psychosis: Psychotic Perceptions Diagnoses Acute psychotic episode, rule out paranoid schizophrenia A-FIB/CHADSVASC A-FIB History Current/History of A-Fib/PAF?: No Current PO Anticoag Therapy: No Age/Risk Factor Scoring CHADSVASC: CHADSVASC Response (Comments) Value Age Risk Factor Age < 65 years old 0 Gender Risk Factor Female 1 Hx of CHF No 0 Hx of HTN No 0 Hx of Stroke/TIA/or VTE No 0 Hx of Diabetes No 0 Hx of Vascular Disease No 0 Total 1 Treatment Treatment ordered: NONE Initial Treatment Plan 1. Patient was admitted on a [9.39] status. 2. Complete history was obtained. 3. With patients permission, family will be contacted and database will be expanded. 4. Patients medication regimen will be reviewed and changed accordingly. 5. Patient will be provided with protected environment. 6. Patient will be treated with individual, group, and milieu therapies. 7. Patient will receive supportive psych-education. 8. Discharge planning will commence immediately. 9. Outpatient follow-up treatment will be strongly recommended. 10. The initial treatment plan will focus initially on: * Depression. * Risk for suicide. ESTIMATED LENGTH OF STAY: - DAYS. TIME SPENT COUNSELING AND COORDINATING INITIAL CARE: minutes. Vital Signs Vital Signs Date Time Temp Pulse Resp B/P (MAP) Pulse Ox O2 Delivery O2 Flow Rate FiO2 11/05/20 01:32 98.5 106 18 110/72 (85) 95 Room Air Laboratory Data 24H Labs Laboratory Tests 2 11/04/20 20:57: Nucleated Red Blood Cells % (auto) 0.0, Anion Gap 8, Glomerular Filtration Rate > 60.0, Calcium Level 9.6, Total Bilirubin 0.5, Direct Bilirubin 0.2, Aspartate Amino Transf (AST/SGOT) 28, Alanine Aminotransferase (ALT/SGPT) 20, Alkaline Phosphatase 85, Total Protein 7.6, Albumin 4.2, Albumin/Globulin Ratio 1.2, Thyroid Stimulating Hormone (TSH) 0.491, Human Chorionic Gonadotropin, Qual NEGATIVE, Salicylates Level 4.8L, Urine Opiates Screen POSITIVEH, Urine Methadone Screen NEGATIVE, Acetaminophen Level 11.3, Urine Barbiturates Screen NEGATIVE, Urine Phencyclidine Screen NEGATIVE, Urine Amphetamines Screen NEGATIVE, Urine Benzodiazepines Screen NEGATIVE, Urine Cocaine Metabolite Screen NEGATIVE, Urine Cannabinoids Screen NEGATIVE, Ethyl Alcohol Level < 0.003 11/04/20 23:01: Coronavirus (COVID-19)(PCR) NEGATIVE, Influenza Type A (RT-PCR) NEGATIVE, Influenza Type B (RT-PCR) NEGATIVE, Respiratory Syncytial Virus (PCR) NEGATIVE CBC/BMP Laboratory Tests 11/04/20 20:57 Medications Scheduled Buprenorphine HCl (Buprenorphine HCl) 8 Mg Tab.subl, 8 MG SL BID for , (Reported) Sertraline Hcl (Zoloft) 100 Mg Tablet, 100 MG PO DAILY, (Reported) Allergies Coded Allergies: No Known Allergies (Unverified , 10/13/17) LIBORIO SPAIN MD Nov 05, 2020 15:47
[2020-11-05 18:34] VITALS: BP 114/65
[2020-11-06 06:20] VITALS: BP 116/57
[2020-11-06] MEDS: NICOTINE 21MG/24HR 1 EA TRANSDERMAL TD SCH (09:15)
[2020-11-06] MEDS: BUPRENORPHINE HCL 8MG SUBINGUAL TABLET SL SCH ×2 (10:18→20:21)
--- NOTE | 2020-11-06 15:46 | MHIPNPDOC ---
[facility] Progress Note Progress Note DATE OF SERVICE: 11/06/20 HISTORY: Patient with numerous previous episodes and occasional admissions, admitted last night with paranoid hallucinations. This morning presents with denying both her mother's information as well as the information that she gave in the emergency room. She then admitted that perhaps she had been using yari VITAL SIGNS: See below. NEW TEST RESULTS: None. CURRENT MEDICATIONS: See below. MENTAL STATUS EXAMINATION: Patient is a 35-year old female, who is admitted for paranoid hallucinations and visual and auditory. Speech: Is. No gross disturbance. Language skills are no disturbance. Thought processes including:. Denies that she was hallucinating and denies most of past history that was gotten from chart and mother. Thought content: As above. Abstract reasoning, and computation: Able to abstract. Description of associations:. No loose associations. Description of abnormal or psychotic thoughts: Psychotic thought. As expressed in the emergency room and change of stories from day-to-day. Judgment: poor Insight: Poor. Orientation: 3. Recent and remote memory: Memory issues, unclear. Patient is denying previous statements and previous history. Attention span and concentration: No disturbance. Language:. No gross disturbance. Fund of knowledge: Adequate. Mood:. Euthymic. Affect: Neutral. DIAGNOSES: 1. Acute psychotic episode secondary to drug. 2.. Rule out schizophrenia. 3., Drug use. ASSESSMENT: As above MANAGEMENT PLAN:. Continue to get information. TIME SPENT:, 30 minutes. Vital Signs Vital Signs Date Time Temp Pulse Resp B/P (MAP) Pulse Ox O2 Delivery O2 Flow Rate FiO2 11/06/20 06:20 98.3 82 16 116/57 (76) 97 Room Air Current Medications Current Medications Medications (Trade) Dose Ordered Sig/Kasi Route PRN Reason Start Time Stop Time Status Last Admin Dose Admin Acetaminophen (Tylenol Tab) 650 mg Q6HP PRN PO HEADACHE or DISCOMFORT 11/04/20 23:05 Al Hydrox/Mg Hydrox/Simethicone (Mylanta) 30 ml Q4HP PRN PO HEARTBURN/INDIGESTION 11/04/20 23:05 Buprenorphine HCl (Subutex) 8 mg BID SL 11/06/20 11:00 11/06/20 10:18 Home Med (Med Rec Complete!) ASDIRECTED XX 11/04/20 23:55 11/04/20 23:55 DC Magnesium Hydroxide (Milk Of Magnesia) 30 ml DAILYPRN PRN PO CONSTIPATION 11/04/20 23:05 Nicotine (Nicoderm Cq 21mg) 1 patch DAILY TD 11/05/20 09:00 11/06/20 09:15 Sertraline HCl (Zoloft) 100 mg DAILY PO 11/07/20 09:00 Trazodone HCl (Desyrel) 50 mg QHSP PRN PO INSOMNIA 11/04/20 23:05 11/05/20 01:41 Allergies Coded Allergies: No Known Allergies (Unverified , 10/13/17) LIBORIO SPAIN MD Nov 06, 2020 15:46
[2020-11-06 16:19] VITALS: BP 106/73
--- NOTE | 2020-11-06 18:27 | HPEPDOC ---
[facility] Medical History & Physical Date of Admission Dec 02, 2020 Date of Service: Nov 06, 2020 History and Physical CHIEF COMPLAINT: Paranoid hallucinations HISTORY OF PRESENT ILLNESS: Apparently the patient broke up with her significant other, and then believed people were in her house. The police were called, no persons were found, she was brought into the ED for evaluation of paranoid hallucinations. She does have a history of polysubstance abuse and multiple prior hospitalizations for psychiatric issues. CODE STATUS: Full code PAST MEDICAL HISTORY: Multi-substance abuse including heroin, cocaine, and perhaps ecstasy Depression Anxiety Tobacco use Alcohol use PAST SURGICAL HISTORY: Femoral laceration repair SOCIAL HISTORY: Reports that she smoked approximately a pack per day since she was 17 years old. She denies alcohol at this time, but it is reported in the chart that she has a history of alcohol use as well. Polysubstance abuse. FAMILY HISTORY: Denies any family history of any medical problems at all REVIEW OF SYSTEMS: Constitutional: Patient denies fevers, chills, night sweats, recent weight gain/loss. HEENT: Patient denies blurred or double vision, transient visual disturbances, postnasal drip, epistaxis, sore throat, difficulty chewing or swallowing food. Cardiovascular: Patient denies chest discomfort/pain, palpitations, exertional dyspnea, orthopnea, edema of the extremities, claudication. Respiratory: Patient denies dyspnea, wheezing, cough, hemoptysis, sputum production. Gastrointestinal: Patient denies nausea, vomiting, diarrhea, constipation, abdominal pain, melena, hematochezia, hematemesis, jaundice. PHYSICAL EXAMINATION: General: Awake, alert, oriented 3. HEENT: Head normocephalic atraumatic, conjunctiva are pink, sclera are nonict liam, buccal mucosa is pink and moist with no lesions in the oropharynx. Hearing is grossly intact to conversation. Respiratory: Clear to auscultation bilaterally with no wheezes, rales, or rhonchi. Cardiovascular: Regular rate and rhythm, with no rubs, gallops, or murmur. Abdomen: Soft, nontender, nondistended, no hepatosplenomegaly appreciated. Bowel sounds present. Extremities: 2+ pulses in the radial. No evidence of clubbing or cyanosis. ASSESSMENT: Paranoid hallucinations likely secondary to substance use PLAN: Per recommendations from the psychiatric team Vital Signs Vital Signs Date Time Temp Pulse Resp B/P (MAP) Pulse Ox O2 Delivery O2 Flow Rate FiO2 11/06/20 16:19 97.7 88 16 106/73 (84) 100 Room Air Home Medications Scheduled Buprenorphine HCl (Buprenorphine HCl) 8 Mg Tab.subl, 8 MG SL BID for Sertraline Hcl (Zoloft) 100 Mg Tablet, 100 MG PO DAILY Allergies Coded Allergies: No Known Allergies (Unverified , 10/13/17) A-FIB/CHADSVASC A-FIB History Current/History of A-Fib/PAF?: No LIBORIO LEWIS DO Nov 06, 2020 18:27
[2020-11-06] MEDS: traZODone 50 MG TAB PO PRN (20:21)
[2020-11-07 06:24] VITALS: BP 129/67
[2020-11-07] MEDS: SERTRALINE 100 MG TAB PO SCH (08:32)
[2020-11-07] MEDS: NICOTINE 21MG/24HR 1 EA TRANSDERMAL TD SCH (08:33)
[2020-11-07] MEDS: BUPRENORPHINE HCL 8MG SUBINGUAL TABLET SL SCH ×2 (09:28→15:49)
--- NOTE | 2020-11-07 16:35 | MHIPNPDOC ---
[facility] Progress Note Progress Note DATE OF SERVICE: 11/07/20 HISTORY: 35-year-old with 2 previous hospitalizations, was brought in for visual hallucinations of 2 men in her house who were climbing out the window or using ladders to climb in her house. 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 She admits that she relapsed back onto heroin the day of admission, but she is presently in treatment at [facility] and other drug treatment. She is hoping to work at [employer]. 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 She states she might have gotten drugs in addition toheroibn when she took heroin when someone may have mixed them unbeknownst to her VITAL SIGNS: See below. NEW TEST RESULTS:, None. CURRENT MEDICATIONS: See below. MENTAL STATUS EXAMINATION: Patient is a 35-year old female, who is, pleasant, but insistent that men were in her house and climbing out the window using ladders. She insists she is not hallucinating. Speech: Is intact. Language skills are. No gross disturbance. Thought processes including: As above. Thought content: As above. Abstract reasoning, and computation: Able to abstract. Description of associations:. No loose associations. Description of abnormal or psychotic thoughts: History and emergency room indicate psychotic thought. Patient denies. Judgment: Poor. Insight: Poor. Orientation: 3. Recent and remote memory: Denies events mentioned in ER and by mother. Attention span and concentration: Intact. Language:. No disturbance. Fund of knowledge: Reasonable. Mood: Euthymic. Affect:, Congruent. DIAGNOSES: 1. Brief psychotic episode secondary to substance abuse. 2., Opiate addiction, under treatment. 3. None. ASSESSMENT:, As above MANAGEMENT PLAN:, We'll discharge to outpatient care. TIME SPENT: 35 minutes. Vital Signs Vital Signs Date Time Temp Pulse Resp B/P (MAP) Pulse Ox O2 Delivery O2 Flow Rate FiO2 11/07/20 06:24 98.0 74 18 129/67 (87) 98 11/06/20 16:19 Room Air Current Medications Current Medications Medications (Trade) Dose Ordered Sig/Kasi Route PRN Reason Start Time Stop Time Status Last Admin Dose Admin Acetaminophen (Tylenol Tab) 650 mg Q6HP PRN PO HEADACHE or DISCOMFORT 11/04/20 23:05 Al Hydrox/Mg Hydrox/Simethicone (Mylanta) 30 ml Q4HP PRN PO HEARTBURN/INDIGESTION 11/04/20 23:05 Buprenorphine HCl (Subutex) 8 mg BID SL 11/06/20 11:00 11/07/20 15:45 DC 11/07/20 09:28 Buprenorphine HCl (Subutex) 8 mg BID@0900,1500 SL 11/07/20 15:00 11/07/20 15:49 Home Med (Med Rec Complete!) ASDIRECTED XX 11/04/20 23:55 11/04/20 23:55 DC Magnesium Hydroxide (Milk Of Magnesia) 30 ml DAILYPRN PRN PO CONSTIPATION 11/04/20 23:05 Nicotine (Nicoderm Cq 21mg) 1 patch DAILY TD 11/05/20 09:00 11/07/20 08:33 Sertraline HCl (Zoloft) 100 mg DAILY PO 11/07/20 09:00 11/07/20 08:32 Trazodone HCl (Desyrel) 50 mg QHSP PRN PO INSOMNIA 11/04/20 23:05 11/06/20 20:21 Allergies Coded Allergies: No Known Allergies (Unverified , 10/13/17) LIBORIO SPAIN MD Nov 07, 2020 16:35
[2020-11-07 16:44] VITALS: BP 124/82
[2020-11-07] MEDS: traZODone 50 MG TAB PO PRN (19:57)
[2020-11-07] MEDS: ACETAMINOPHEN TAB 650MG DOSE (2X325MG) PO PRN (19:58)
[2020-11-08 06:31] VITALS: BP 114/58
[2020-11-08] MEDS: BUPRENORPHINE HCL 8MG SUBINGUAL TABLET SL SCH (08:01)
[2020-11-08] MEDS: SERTRALINE 100 MG TAB PO SCH (08:01)
[2020-11-08] MEDS: NICOTINE 21MG/24HR 1 EA TRANSDERMAL TD SCH (08:01)
[2020-11-08] MEDS: ACETAMINOPHEN TAB 650MG DOSE (2X325MG) PO PRN (08:52)
--- NOTE | 2020-11-08 14:13 | MHDSPDOC ---
[facility] Discharge Summary Discharge Summary DATE OF ADMISSION: Nov 04, 2020 at 20:46 DATE OF DISCHARGE: November 08 DISCHARGE DIAGNOSES: 1. Acute psychotic episode secondary to drug use. 2., Opiate addiction, under treatment. REASON FOR ADMISSION: Patient denies symptoms but apparently was hallucinating about men in her house were sneaking out, using the latter CONSULTANTS INVOLVED: None TREATMENT AND PROGRESS ON THE UNIT :. He shouldn't continued to deny that these were hallucinations but admitted she had been using additional drugs prior to admission. HOSPITAL COURSE:, Unremarkable. Did not treat for psychosis. This patient continued to deny hallucinations or delusions and behaved well on the unit suspected that substances were involved DISCHARGE ASSESSMENT: Acute psychotic episode secondary to substances MENTAL STATUS EXAMINATION ON DISCHARGE: Patient is a 35-year old female, who is wanting to be discharged. Speech is. Normal. Language skills are no gross disturbance. Thought processes including: Insists that men were in her house. Denies using knife. Thought content: As above. Abstract reasoning, and computation:. Poor abstraction. Description of associations:. No loose association. Description of abnormal or psychotic thoughts: As described what appears to be psychotic thought in terms of what happened in her house. Judgment:, Fair. Insight: Poor. Orientation to 3. Recent and remote memory: Intact. Attention span and concentration: Intact. Language:. No disturbance. Fund of knowledge: Reasonable. Mood: Good. Affect:, Congruent. MEDICATIONS ON DISCHARGE: -None for, although patient will continue on her Suboxone treatment PLAN/FOLLOWUP ARRANGEMENTS: Will return to her previous treatment. The amount of time spent in the coordination of care for this patient was approximately 45 minutes. Vital Signs/I&Os Vital Signs Date Time Temp Pulse Resp B/P (MAP) Pulse Ox O2 Delivery O2 Flow Rate FiO2 11/08/20 06:31 97.5 71 16 114/58 (76) 96 Room Air Medications Scheduled Buprenorphine HCl (Buprenorphine HCl) 8 Mg Tab.subl, 8 MG SL BID for , (Reported) Sertraline Hcl (Zoloft) 100 Mg Tablet, 100 MG PO DAILY, (Reported) Allergies Coded Allergies: No Known Allergies (Unverified , 10/13/17) LIBORIO SPAIN MD Nov 08, 2020 14:13
== END 2020-11-08 13:50 | disposition home or self-care (01) | DRG 773 ==
LOC: M ED 20:45 → M ED INP 20:46 → M PSY 11-05 00:55
PROVIDERS: ADMIT Psychiatry & Neurology Child & Adolescent Psychiatry; ATTEND Psychiatry & Neurology Child & Adolescent Psychiatry
DX: F11.251 Opioid dependence with opioid-induced psychotic disorder with hallucinations (principal); F20.0 Paranoid schizophrenia; Z20.822 Contact with and (suspected) exposure to COVID-19; Z79.899 Other long term (current) drug therapy; Z63.5 Disruption of family by separation and divorce; F17.200 Nicotine dependence, unspecified, uncomplicated

== ENCOUNTER → 2020-12-13 | Outpatient (CLI) | payer MEDICAID ==
[~2020-12-13] MED LIST changes: +ZOLO100T PO
== END ==
LOC: M OUTALCOH 13:06
PROVIDERS: ATTEND Psychiatry & Neurology Psychiatry
DX: Z02.89 Encounter for other administrative examinations (principal)

== ENCOUNTER 2021-08-01 18:57 | Inpatient (IN) | payer MEDICAID, OTHER ==
[~2021-08-01] VITALS: Ht 165.1 cm; Wt 60.1 kg
[~2021-08-01 18:57] MED LIST changes: +GABA-283 PO; -GABA-845 PO
[2021-08-02 01:56] LABS: AMPHETAMINES LEVEL URINE NEGATIVE (NEGATIVE); BARBITURATES URINE NEGATIVE (NEGATIVE); BENZODIAZEPINES URINE NEGATIVE (NEGATIVE); CANNABINOIDS URINE NEGATIVE (NEGATIVE); COCAINE METABOLITE URINE NEGATIVE (NEGATIVE); METHADONE URINE NEGATIVE (NEGATIVE); OPIATES URINE NEGATIVE (NEGATIVE); PHENCYCLIDINE URINE NEGATIVE (NEGATIVE)
[2021-08-02 04:27] LABS: HEMATOCRIT 48.3 % (36.0-47.0); MEAN CORPUSCULAR HEMOGLOBIN 31.3 pg (27.0-33.0); MEAN CORPUSCULAR HGB CONC 33.1 g/dl (32.0-36.5); MEAN CORPUSCULAR VOLUME 94.5 fl (80.0-96.0); PLATELET COUNT, AUTOMATED 259 10^3/uL (150-450); RED BLOOD COUNT 5.11 10^6/uL (4.00-5.40); WHITE BLOOD COUNT 12.7 10^3/uL (4.0-10.0)
[2021-08-02 05:04] LABS: ALBUMIN 4.2 GM/DL (3.2-5.2); ALT/SGPT 23 U/L (12-78); BILIRUBIN,DIRECT < 0.1 MG/DL (0.0-0.2); BILIRUBIN,TOTAL 0.3 MG/DL (0.2-1.0); BLOOD UREA NITROGEN 12 MG/DL (7-18); CALCIUM LEVEL 9.7 MG/DL (8.5-10.1); CARBON DIOXIDE LEVEL 24 MEQ/L (21-32); CHLORIDE LEVEL 108 MEQ/L (98-107); CREATININE FOR GFR 1.05 MG/DL (0.55-1.30); ETHYL ALCOHOL (ETHANOL) < 0.003 % (0.000-0.010); GLOMERULAR FILTRATION RATE > 60.0 (>60); GLUCOSE, FASTING 101 MG/DL (70-100); SALICYLATE LEVEL 4.4 MG/DL (5.0-30.0); SODIUM LEVEL 143 MEQ/L (136-145); THYROID STIMULATING HORMONE 0.952 uIU/ML (0.358-3.740); TOTAL PROTEIN 7.7 GM/DL (6.4-8.2)
[2021-08-02 05:05] LABS: ACETAMINOPHEN LEVEL < 2.0 UG/ML (10.0-30.0); RSV AMPLIFICATION NEGATIVE (NEGATIVE)
[2021-08-02 05:23] LABS: HCG, SERUM QUALITATIVE NEGATIVE (NEGATIVE)
[2021-08-02] MEDS ORDERED: OLANZapine ORAL DISINTEGRATING TAB 5MG PO PRN (07:05)
[2021-08-02] MEDS ORDERED: MOM 30ML SUSPENSION UDC PO PRN (07:05)
[2021-08-02] MEDS ORDERED: MAALOX 30 ML SUSP *UDC PO PRN (07:05)
[2021-08-02] MEDS ORDERED: ACETAMINOPHEN TAB 650MG DOSE (2X325MG) PO PRN (07:05)
[2021-08-02] MEDS ORDERED: traZODone 50 MG TAB PO PRN (07:05)
[2021-08-02] MEDS ORDERED: HOME MED LIST COMPLETE! XX SCH (08:15)
[2021-08-02] MEDS: NICOTINE 21MG/24HR 1 EA TRANSDERMAL TD SCH (08:54)
[2021-08-02 12:26] VITALS: BP 154/91
[2021-08-03 06:44] VITALS: BP 104/68
[2021-08-03] MEDS: NICOTINE 21MG/24HR 1 EA TRANSDERMAL TD SCH ×2 (09:00→09:54)
[2021-08-03 14:14] LABS: BLOOD UREA NITROGEN 9 MG/DL (7-18); CALCIUM LEVEL 9.6 MG/DL (8.5-10.1); CARBON DIOXIDE LEVEL 23 MEQ/L (21-32); CHLORIDE LEVEL 106 MEQ/L (98-107); CREATININE FOR GFR 1.01 MG/DL (0.55-1.30); GLOMERULAR FILTRATION RATE > 60.0 (>60); GLUCOSE, FASTING 107 MG/DL (70-100); POTASSIUM SERUM 5.6 MEQ/L (3.5-5.1); SODIUM LEVEL 138 MEQ/L (136-145)
[2021-08-03 16:02] VITALS: BP 121/72
[2021-08-04 06:37] VITALS: BP 102/70
[2021-08-04] MEDS: NICOTINE 21MG/24HR 1 EA TRANSDERMAL TD SCH (07:35)
[2021-08-04 16:08] VITALS: BP 117/78
[2021-08-05] MEDS: NICOTINE 21MG/24HR 1 EA TRANSDERMAL TD SCH (08:34)
[2021-08-05 16:24] VITALS: BP 122/81
[2021-08-05] MEDS: OLANZapine 5 MG TAB PO SCH (22:36)
[2021-08-06] VITALS (8 sets, daily range): BP systolic 138–144; BP diastolic 72–94
[2021-08-06] MEDS: NICOTINE 21MG/24HR 1 EA TRANSDERMAL TD SCH (09:36)
[2021-08-06] MEDS ORDERED: OLAN1TAB16 PO (13:50)
[2021-08-06] MEDS ORDERED: NICO21PAT TD (13:50)
[2021-08-06] MEDS: OLANZapine 5 MG TAB PO SCH (21:00)
[2021-08-06] MEDS ORDERED: HALOPERIDOL 5MG/ML VIAL (J1630 PER 1) IM STA (21:21)
[2021-08-06] MEDS ORDERED: LORazepam 2 MG/ML VIAL IM STA (21:21)
[2021-08-06] MEDS ORDERED: diphenhydrAMINE 50MG/ML VIAL (J1200) IM STA (21:21)
[2021-08-07 06:57] VITALS: BP 111/63
[2021-08-07] MEDS: NICOTINE 21MG/24HR 1 EA TRANSDERMAL TD SCH (08:06)
== END 2021-08-07 13:34 | disposition home or self-care (01) | DRG 751 ==
LOC: M ED 18:57 → M ED INP 08-02 07:01 → M PSY 08-02 12:27
PROVIDERS: ADMIT Psychiatry & Neurology Psychiatry; ATTEND Psychiatry & Neurology Psychiatry
DX: F29 Unspecified psychosis not due to a substance or known physiological condition (principal); F32.9 Major depressive disorder, single episode, unspecified; F17.210 Nicotine dependence, cigarettes, uncomplicated; Z91.14 Patient's other noncompliance with medication regimen; E87.6 Hypokalemia; Z78.1 Physical restraint status; F60.89 Other specific personality disorders; F60.2 Antisocial personality disorder; Z20.822 Contact with and (suspected) exposure to COVID-19

== ENCOUNTER 2022-01-12 19:47 | Inpatient (IN) | payer MEDICAID ==
[~2022-01-12] VITALS: Ht 165.1 cm; Wt 56.9 kg
[~2022-01-12 19:47] MED LIST changes: +OLAN1TAB16 PO
[2022-01-12 20:26] LABS: HEMATOCRIT 42.8 % (36.0-47.0); HEMOGLOBIN 14.4 g/dl (12.0-15.5); MEAN CORPUSCULAR HEMOGLOBIN 31.4 pg (27.0-33.0); MEAN CORPUSCULAR HGB CONC 33.6 g/dl (32.0-36.5); MEAN CORPUSCULAR VOLUME 93.2 fl (80.0-96.0); PLATELET COUNT, AUTOMATED 242 10^3/uL (150-450); RED BLOOD COUNT 4.59 10^6/uL (4.00-5.40); WHITE BLOOD COUNT 10.6 10^3/uL (4.0-10.0)
[2022-01-12 20:45] LABS: AMPHETAMINES LEVEL URINE NEGATIVE (NEGATIVE); BARBITURATES URINE NEGATIVE (NEGATIVE); BENZODIAZEPINES URINE NEGATIVE (NEGATIVE); CANNABINOIDS URINE NEGATIVE (NEGATIVE); COCAINE METABOLITE URINE NEGATIVE (NEGATIVE); METHADONE URINE NEGATIVE (NEGATIVE); OPIATES URINE NEGATIVE (NEGATIVE); PHENCYCLIDINE URINE NEGATIVE (NEGATIVE)
[2022-01-12 20:47] LABS: HCG, SERUM QUALITATIVE NEGATIVE (NEGATIVE)
[2022-01-12 20:56] LABS: ACETAMINOPHEN LEVEL < 2.0 UG/ML (10.0-30.0); ALBUMIN 4.5 GM/DL (3.2-5.2); ALT/SGPT 62 U/L (12-78); BILIRUBIN,DIRECT 0.2 MG/DL (0.0-0.2); BILIRUBIN,TOTAL 0.8 MG/DL (0.2-1.0); BLOOD UREA NITROGEN 17 MG/DL (7-18); CALCIUM LEVEL 9.7 MG/DL (8.5-10.1); CARBON DIOXIDE LEVEL 29 MEQ/L (21-32); CHLORIDE LEVEL 105 MEQ/L (98-107); CREATININE FOR GFR 0.81 MG/DL (0.55-1.30); ETHYL ALCOHOL (ETHANOL) < 0.003 % (0.000-0.010); GLOMERULAR FILTRATION RATE > 60.0 (>60); GLUCOSE, FASTING 90 MG/DL (70-100); SODIUM LEVEL 140 MEQ/L (136-145); THYROID STIMULATING HORMONE 0.183 uIU/ML (0.358-3.740); TOTAL PROTEIN 7.8 GM/DL (6.4-8.2)
[2022-01-12 21:22] LABS: RSV AMPLIFICATION NEGATIVE (NEGATIVE)
[2022-01-12] MEDS ORDERED: HOME MED LIST COMPLETE! XX SCH (21:45)
[2022-01-15 00:40] LABS: RSV AMPLIFICATION NEGATIVE (NEGATIVE)
[2022-01-15] MEDS ORDERED: IBUPROFEN 400MG TAB PO PRN (12:55)
[2022-01-15] MEDS ORDERED: MOM 30ML SUSPENSION UDC PO PRN (12:55)
[2022-01-15] MEDS ORDERED: diphenhydrAMINE 25MG CAP PO PRN (12:55)
[2022-01-15 20:01] VITALS: BP 111/73
[2022-01-16 06:29] VITALS: BP 105/61
[2022-01-16] MEDS: NICOTINE 21MG/24HR 1 EA TRANSDERMAL TD SCH ×3 (09:00→11:03)
[2022-01-16] MEDS: OLANZapine ORAL DISINTEGRATING TAB 5MG PO PRN (11:01)
[2022-01-16] MEDS: OLANZapine 5 MG TAB PO SCH ×2 (11:11→21:37)
[2022-01-16 17:21] VITALS: BP 92/56
[2022-01-16] MEDS: FLUoxetine 10 MG CAP PO SCH (21:37)
[2022-01-17 06:46] VITALS: BP 86/56
[2022-01-17] MEDS: NICOTINE 21MG/24HR 1 EA TRANSDERMAL TD SCH ×2 (09:00→13:53)
[2022-01-17 13:23] LABS: BASO # 0.1 10^3/uL (0.0-0.2); BASO % 1.2 % (0.0-1.0); EOS # 0.3 10^3/uL (0.0-0.5); EOS % 5.3 % (0.0-3.0); HEMATOCRIT 43.7 % (36.0-47.0); HEMOGLOBIN 14.1 g/dl (12.0-15.5); LYMPH # 1.8 10^3/uL (1.5-5.0); LYMPH % 36.7 % (24.0-44.0); MEAN CORPUSCULAR HEMOGLOBIN 31.6 pg (27.0-33.0); MEAN CORPUSCULAR HGB CONC 32.3 g/dl (32.0-36.5); MONO # 0.2 10^3/uL (0.0-0.8); MONO % 3.3 % (2.0-8.0); NEUTROPHILS # 2.6 10^3/uL (1.5-8.5); NEUTROPHILS % 52.5 % (36.0-66.0); PLATELET COUNT, AUTOMATED 219 10^3/uL (150-450); RED BLOOD COUNT 4.46 10^6/uL (4.00-5.40); WHITE BLOOD COUNT 4.9 10^3/uL (4.0-10.0)
[2022-01-17 13:37] LABS: BLOOD UREA NITROGEN 11 MG/DL (7-18); CALCIUM LEVEL 9.4 MG/DL (8.5-10.1); CARBON DIOXIDE LEVEL 35 MEQ/L (21-32); CHLORIDE LEVEL 107 MEQ/L (98-107); CREATININE FOR GFR 0.98 MG/DL (0.55-1.30); FREE T4 0.86 NG/DL (0.76-1.46); GLOMERULAR FILTRATION RATE > 60.0 (>60); GLUCOSE, FASTING 137 MG/DL (70-100); POTASSIUM SERUM 4.1 MEQ/L (3.5-5.1); SODIUM LEVEL 142 MEQ/L (136-145)
[2022-01-17] MEDS: hydrOXYzine 50 MG TAB PO PRN (13:52)
[2022-01-17] MEDS: OLANZapine ORAL DISINTEGRATING TAB 5MG PO PRN (22:14)
[2022-01-17] MEDS: FLUoxetine 10 MG CAP PO SCH (22:14)
[2022-01-17] MEDS: FLUoxetine 20MG CAP PO SCH (22:14)
[2022-01-17] MEDS: OLANZapine 5 MG TAB PO SCH (22:16)
[2022-01-18 06:00] VITALS: BP 91/58
[2022-01-18] MEDS: NICOTINE 21MG/24HR 1 EA TRANSDERMAL TD SCH (09:00)
[2022-01-18 18:00] VITALS: BP 113/73
[2022-01-18] MEDS: FLUoxetine 20MG CAP PO SCH (20:20)
[2022-01-18] MEDS: OLANZapine 5 MG TAB PO SCH (20:21)
[2022-01-19 06:47] VITALS: BP 104/56
[2022-01-19] MEDS: NICOTINE 21MG/24HR 1 EA TRANSDERMAL TD SCH (10:11)
[2022-01-19] MEDS: OLANZapine ORAL DISINTEGRATING TAB 5MG PO PRN (15:46)
[2022-01-19 16:00] VITALS: BP 106/60
[2022-01-19] MEDS: FLUoxetine 20MG CAP PO SCH (20:26)
[2022-01-19] MEDS: OLANZapine 5 MG TAB PO SCH (20:26)
[2022-01-20] MEDS: NICOTINE 21MG/24HR 1 EA TRANSDERMAL TD SCH (09:43)
[2022-01-20] MEDS: hydrOXYzine 50 MG TAB PO PRN ×2 (09:43→20:22)
[2022-01-20 15:24] VITALS: BP 105/61
[2022-01-20] MEDS: FLUoxetine 20MG CAP PO SCH (20:21)
[2022-01-20] MEDS: OLANZapine 5 MG TAB PO SCH (20:21)
[2022-01-21 06:28] VITALS: BP 99/54
[2022-01-21] MEDS: NICOTINE 21MG/24HR 1 EA TRANSDERMAL TD SCH (10:08)
[2022-01-21] MEDS: hydrOXYzine 50 MG TAB PO PRN (12:40)
[2022-01-21 19:18] VITALS: BP 104/65
[2022-01-21] MEDS: MAALOX 30 ML SUSP *UDC PO PRN (19:49)
[2022-01-21] MEDS: FLUoxetine 20MG CAP PO SCH (20:54)
[2022-01-21] MEDS: OLANZapine 5 MG TAB PO SCH (20:54)
[2022-01-21] MEDS: traZODone 50 MG TAB PO PRN (20:54)
[2022-01-22 07:08] VITALS: BP 92/54
[2022-01-22] MEDS: NICOTINE 21MG/24HR 1 EA TRANSDERMAL TD SCH (09:03)
[2022-01-22] MEDS: MAALOX 30 ML SUSP *UDC PO PRN ×2 (16:24→22:38)
[2022-01-22 19:17] VITALS: BP 106/55
[2022-01-22] MEDS: OLANZapine 5 MG TAB PO SCH (20:34)
[2022-01-22] MEDS: FLUoxetine 20MG CAP PO SCH (20:34)
[2022-01-22] MEDS: traZODone 50 MG TAB PO PRN (20:34)
[2022-01-23 06:38] VITALS: BP 87/48
[2022-01-23] MEDS: NICOTINE POLACRILEX 2 MG GUM PO PRN ×2 (12:11→17:36)
[2022-01-23] MEDS: OLANZapine ORAL DISINTEGRATING TAB 5MG PO PRN ×2 (12:11→18:39)
[2022-01-23] MEDS: OLANZapine 5 MG TAB PO SCH ×2 (15:30→21:44)
[2022-01-23 17:53] VITALS: BP 112/66
[2022-01-23] MEDS: FLUoxetine 20MG CAP PO SCH (21:44)
[2022-01-24 06:18] VITALS: BP 106/59
[2022-01-24] MEDS: NICOTINE POLACRILEX 2 MG GUM PO PRN ×3 (07:52→17:39)
[2022-01-24] MEDS: OLANZapine 5 MG TAB PO SCH ×2 (07:52→20:21)
[2022-01-24] MEDS: MAALOX 30 ML SUSP *UDC PO PRN (17:38)
[2022-01-24 18:07] VITALS: BP 109/67
[2022-01-24] MEDS: FLUoxetine 20MG CAP PO SCH (20:21)
[2022-01-25 06:34] VITALS: BP 96/53
[2022-01-25] MEDS: OLANZapine 5 MG TAB PO SCH ×2 (09:34→20:25)
[2022-01-25] MEDS: NICOTINE POLACRILEX 2 MG GUM PO PRN ×2 (10:09→16:02)
[2022-01-25 18:00] VITALS: BP 112/73
[2022-01-25] MEDS: FLUoxetine 20MG CAP PO SCH (20:25)
[2022-01-25] MEDS: traZODone 50 MG TAB PO PRN (20:25)
[2022-01-26] MEDS: NICOTINE POLACRILEX 2 MG GUM PO PRN ×3 (07:06→18:27)
[2022-01-26] MEDS: hydrOXYzine 50 MG TAB PO PRN (08:49)
[2022-01-26] MEDS: OLANZapine 5 MG TAB PO SCH ×2 (08:49→20:50)
[2022-01-26 18:00] VITALS: BP 115/61
[2022-01-26] MEDS: OLANZapine ORAL DISINTEGRATING TAB 5MG PO PRN (18:28)
[2022-01-26] MEDS: traZODone 50 MG TAB PO PRN (20:50)
[2022-01-26] MEDS: FLUoxetine 20MG CAP PO SCH (20:50)
[2022-01-26] MEDS: MAALOX 30 ML SUSP *UDC PO PRN (21:15)
[2022-01-27 06:40] VITALS: BP 106/60
[2022-01-27] MEDS: NICOTINE POLACRILEX 2 MG GUM PO PRN (08:18)
[2022-01-27] MEDS: OLANZapine 5 MG TAB PO SCH ×2 (08:19→20:20)
[2022-01-27 11:25] VITALS: BP 106/60
[2022-01-27 18:00] VITALS: BP 109/55
[2022-01-27] MEDS: traZODone 50 MG TAB PO PRN (20:20)
[2022-01-27] MEDS: FLUoxetine 20MG CAP PO SCH (20:20)
[2022-01-27] MEDS: MAALOX 30 ML SUSP *UDC PO PRN (21:06)
[2022-01-28 06:00] VITALS: BP 97/54
[2022-01-28] MEDS: OLANZapine 5 MG TAB PO SCH (08:21)
[2022-01-28] MEDS ORDERED: NICO2GUM PO (11:10)
[2022-01-28] MEDS ORDERED: OLAN1TAB16 PO (11:10)
[2022-01-28] MEDS ORDERED: FLUO20CA22 PO (11:10)
[2022-01-29] MEDS ORDERED: OLAN1TAB20 PO (08:12)
[2022-01-29] MEDS ORDERED: NICO2GUM41 PO (16:23)
== END 2022-01-28 11:51 | disposition home or self-care (01) | DRG 751 ==
LOC: M ED 19:47 → M ED INP 01-15 12:55 → M PSY 01-15 17:04
PROVIDERS: ADMIT Student in an Organized Health Care Education/Training Program; ATTEND Student in an Organized Health Care Education/Training Program
DX: F33.1 Major depressive disorder, recurrent, moderate (principal); F11.90 Opioid use, unspecified, uncomplicated; F17.200 Nicotine dependence, unspecified, uncomplicated; F60.89 Other specific personality disorders; Z56.0 Unemployment, unspecified; E07.9 Disorder of thyroid, unspecified; Z20.822 Contact with and (suspected) exposure to COVID-19

== ENCOUNTER 2022-01-29 08:06 | Emergency (ER) | payer MEDICAID, OTHER ==
[~2022-01-29] VITALS: Ht 165.1 cm; Wt 64.8 kg
[~2022-01-29 08:06] MED LIST changes: +FLUO20CA22 PO; +NICO2GUM PO
[2022-01-29] MEDS ORDERED: OLAN1TAB20 PO (08:12)
[2022-01-29 09:34] LABS: AMPHETAMINES LEVEL URINE NEGATIVE (NEGATIVE); BARBITURATES URINE NEGATIVE (NEGATIVE); BENZODIAZEPINES URINE NEGATIVE (NEGATIVE); CANNABINOIDS URINE NEGATIVE (NEGATIVE); COCAINE METABOLITE URINE NEGATIVE (NEGATIVE); METHADONE URINE NEGATIVE (NEGATIVE); OPIATES URINE NEGATIVE (NEGATIVE); PHENCYCLIDINE URINE NEGATIVE (NEGATIVE)
[2022-01-29 09:51] LABS: RSV AMPLIFICATION NEGATIVE (NEGATIVE)
[2022-01-29 11:46] LABS: HEMATOCRIT 37.2 % (36.0-47.0); HEMOGLOBIN 12.1 g/dl (12.0-15.5); MEAN CORPUSCULAR HEMOGLOBIN 31.9 pg (27.0-33.0); MEAN CORPUSCULAR HGB CONC 32.5 g/dl (32.0-36.5); MEAN CORPUSCULAR VOLUME 98.2 fl (80.0-96.0); PLATELET COUNT, AUTOMATED 219 10^3/uL (150-450); RED BLOOD COUNT 3.79 10^6/uL (4.00-5.40); WHITE BLOOD COUNT 9.1 10^3/uL (4.0-10.0)
[2022-01-29 12:18] LABS: HCG, SERUM QUALITATIVE NEGATIVE (NEGATIVE)
[2022-01-29 12:29] LABS: ACETAMINOPHEN LEVEL < 2.0 UG/ML (10.0-30.0); ALBUMIN 3.8 GM/DL (3.2-5.2); ALT/SGPT 60 U/L (12-78); BILIRUBIN,DIRECT < 0.1 MG/DL (0.0-0.2); BILIRUBIN,TOTAL 0.2 MG/DL (0.2-1.0); BLOOD UREA NITROGEN 10 MG/DL (7-18); CALCIUM LEVEL 9.4 MG/DL (8.5-10.1); CARBON DIOXIDE LEVEL 27 MEQ/L (21-32); CHLORIDE LEVEL 106 MEQ/L (98-107); CREATININE FOR GFR 0.67 MG/DL (0.55-1.30); ETHYL ALCOHOL (ETHANOL) < 0.003 % (0.000-0.010); GLOMERULAR FILTRATION RATE > 60.0 (>60); GLUCOSE, FASTING 110 MG/DL (70-100); POTASSIUM SERUM 4.1 MEQ/L (3.5-5.1); SALICYLATE LEVEL 1.8 MG/DL (5.0-30.0); SODIUM LEVEL 141 MEQ/L (136-145); TOTAL PROTEIN 7.2 GM/DL (6.4-8.2)
[2022-01-29] MEDS ORDERED: NICO2GUM41 PO (16:23)
[2022-01-29] MEDS ORDERED: HOME MED LIST COMPLETE! XX SCH (16:30)
[2022-01-30] MEDS ORDERED: IBUPROFEN 800 MG TAB PO ONE ×2 (07:45→17:45)
[2022-01-30 20:11] VITALS: BP 104/62
== END 2022-01-30 20:12 ==
LOC: M ED 08:06
DX: R45.851 Suicidal ideations (principal); F17.200 Nicotine dependence, unspecified, uncomplicated; F32.A Depression, unspecified; Z79.899 Other long term (current) drug therapy

== ENCOUNTER 2022-03-08 21:23 | Inpatient (IN) | payer MEDICAID, OTHER ==
[~2022-03-08] VITALS: Ht 165.1 cm; Wt 73.3 kg
[~2022-03-08 21:23] MED LIST changes: +NICO2GUM41 PO; +OLAN1TAB20 PO
[2022-03-08 22:05] LABS: BASO # 0.1 10^3/uL (0.0-0.2); BASO % 0.7 % (0.0-1.0); EOS # 0.2 10^3/uL (0.0-0.5); EOS % 3.2 % (0.0-3.0); HEMOGLOBIN 12.3 g/dl (12.0-15.5); LYMPH # 1.7 10^3/uL (1.5-5.0); LYMPH % 22.4 % (24.0-44.0); MEAN CORPUSCULAR HEMOGLOBIN 31.9 pg (27.0-33.0); MEAN CORPUSCULAR HGB CONC 33.2 g/dl (32.0-36.5); MEAN CORPUSCULAR VOLUME 96.1 fl (80.0-96.0); MONO # 0.7 10^3/uL (0.0-0.8); MONO % 9.7 % (2.0-8.0); NEUTROPHILS # 4.7 10^3/uL (1.5-8.5); NEUTROPHILS % 62.2 % (36.0-66.0); PLATELET COUNT, AUTOMATED 185 10^3/uL (150-450); RED BLOOD COUNT 3.85 10^6/uL (4.00-5.40); WHITE BLOOD COUNT 7.6 10^3/uL (4.0-10.0)
[2022-03-08] MEDS ORDERED: NS 1,000 ML IV ONE (22:05)
[2022-03-08] MEDS ORDERED: MAG SULF 1GM/100ML (MAG RUN) 1 GM in IV 1 EA IV ONE ×2 (22:05→22:15)
[2022-03-08 22:35] LABS: ACETAMINOPHEN LEVEL < 2.0 UG/ML (10.0-30.0); ALBUMIN 4.3 GM/DL (3.2-5.2); ALT/SGPT 51 U/L (12-78); BILIRUBIN,DIRECT < 0.1 MG/DL (0.0-0.2); BILIRUBIN,TOTAL 0.3 MG/DL (0.2-1.0); BLOOD UREA NITROGEN 14 MG/DL (7-18); CALCIUM LEVEL 9.4 MG/DL (8.5-10.1); CARBON DIOXIDE LEVEL 28 MEQ/L (21-32); CHLORIDE LEVEL 103 MEQ/L (98-107); CREATININE FOR GFR 0.81 MG/DL (0.55-1.30); ETHYL ALCOHOL (ETHANOL) < 0.003 % (0.000-0.010); GLOMERULAR FILTRATION RATE > 60.0 (>60); GLUCOSE, FASTING 114 MG/DL (70-100); POTASSIUM SERUM 3.8 MEQ/L (3.5-5.1); SALICYLATE LEVEL < 1.7 MG/DL (5.0-30.0); SODIUM LEVEL 139 MEQ/L (136-145); TOTAL PROTEIN 7.9 GM/DL (6.4-8.2)
[2022-03-08 22:36] LABS: HCG, SERUM QUALITATIVE NEGATIVE (NEGATIVE)
[2022-03-09 06:27] LABS: AMPHETAMINES LEVEL URINE NEGATIVE (NEGATIVE); BARBITURATES URINE NEGATIVE (NEGATIVE); BENZODIAZEPINES URINE NEGATIVE (NEGATIVE); CANNABINOIDS URINE NEGATIVE (NEGATIVE); COCAINE METABOLITE URINE NEGATIVE (NEGATIVE); METHADONE URINE NEGATIVE (NEGATIVE); OPIATES URINE NEGATIVE (NEGATIVE); PHENCYCLIDINE URINE NEGATIVE (NEGATIVE)
[2022-03-09 07:10] LABS: RSV AMPLIFICATION NEGATIVE (NEGATIVE)
[2022-03-09] MEDS ORDERED: TRAZ-252 PO (15:13)
[2022-03-09] MEDS ORDERED: GABA-282 PO (15:13)
[2022-03-09] MEDS ORDERED: ZOLO100T PO (15:13)
[2022-03-09] MEDS ORDERED: HALO5TAB33 PO (15:13)
[2022-03-09] MEDS ORDERED: VITA100093 PO (15:13)
[2022-03-09] MEDS ORDERED: MOM 30ML SUSPENSION UDC PO PRN (15:20)
[2022-03-09 17:56] VITALS: BP 105/62
[2022-03-09] MEDS: NICOTINE 21MG/24HR 1 EA TRANSDERMAL TD SCH (18:34)
[2022-03-09] MEDS: SERTRALINE 100 MG TAB PO SCH (18:39)
[2022-03-09] MEDS: OLANZapine ORAL DISINTEGRATING TAB 5MG PO PRN ×2 (18:39→23:17)
[2022-03-09] MEDS ORDERED: HOME MED LIST COMPLETE! XX SCH (19:00)
[2022-03-10 06:00] VITALS: BP 125/68
[2022-03-10] MEDS: NICOTINE 21MG/24HR 1 EA TRANSDERMAL TD SCH (10:22)
[2022-03-10] MEDS: SERTRALINE 100 MG TAB PO SCH (10:22)
[2022-03-10] MEDS: OLANZapine ORAL DISINTEGRATING TAB 5MG PO PRN ×2 (10:25→17:18)
[2022-03-10] MEDS ORDERED: traZODone 50 MG TAB PO PRN (12:05)
[2022-03-10] MEDS: GABAPENTIN 300 MG CAP PO SCH ×2 (13:08→20:35)
[2022-03-10 15:46] VITALS: BP 108/59
[2022-03-11 06:49] VITALS: BP 109/72
[2022-03-11] MEDS: NICOTINE 21MG/24HR 1 EA TRANSDERMAL TD SCH (08:04)
[2022-03-11] MEDS: SERTRALINE 100 MG TAB PO SCH (08:04)
[2022-03-11] MEDS: GABAPENTIN 300 MG CAP PO SCH ×3 (08:05→19:59)
[2022-03-11] MEDS: OLANZapine ORAL DISINTEGRATING TAB 5MG PO PRN ×3 (08:05→19:59)
[2022-03-11 18:30] VITALS: BP 114/73
[2022-03-12 06:45] VITALS: BP 93/54
[2022-03-12] MEDS: NICOTINE 21MG/24HR 1 EA TRANSDERMAL TD SCH (07:46)
[2022-03-12] MEDS: SERTRALINE 100 MG TAB PO SCH (07:47)
[2022-03-12] MEDS: GABAPENTIN 300 MG CAP PO SCH (07:47)
[2022-03-12] MEDS: OLANZapine ORAL DISINTEGRATING TAB 5MG PO PRN ×3 (07:47→18:02)
[2022-03-12] MEDS: MAALOX 30 ML SUSP *UDC PO PRN (16:41)
[2022-03-12 18:52] VITALS: BP 115/69
[2022-03-13 06:54] VITALS: BP 161/75
[2022-03-13] MEDS: SERTRALINE 100 MG TAB PO SCH (09:08)
[2022-03-13] MEDS: NICOTINE 21MG/24HR 1 EA TRANSDERMAL TD SCH (09:09)
[2022-03-13] MEDS: OLANZapine ORAL DISINTEGRATING TAB 5MG PO PRN (10:46)
[2022-03-13] MEDS: BENZTROPINE 1 MG TAB PO SCH ×2 (11:24→20:08)
[2022-03-13] MEDS: PROPRANOLOL 10 MG TAB PO SCH ×2 (16:17→20:10)
[2022-03-13] MEDS: MAALOX 30 ML SUSP *UDC PO PRN (17:02)
[2022-03-13 17:44] VITALS: BP 148/80
[2022-03-14 06:39] VITALS: BP 106/59
[2022-03-14] MEDS: NICOTINE 21MG/24HR 1 EA TRANSDERMAL TD SCH (08:22)
[2022-03-14] MEDS: SERTRALINE 100 MG TAB PO SCH (08:24)
[2022-03-14] MEDS: BENZTROPINE 1 MG TAB PO SCH ×2 (08:24→20:09)
[2022-03-14] MEDS: PROPRANOLOL 10 MG TAB PO SCH ×3 (08:24→20:10)
[2022-03-14] MEDS: MAALOX 30 ML SUSP *UDC PO PRN ×3 (11:13→19:03)
[2022-03-14 18:37] VITALS: BP 115/72
[2022-03-14] MEDS: MIRTAZAPINE 15 MG TAB PO PRN (20:49)
[2022-03-15 06:55] VITALS: BP 115/55
[2022-03-15] MEDS: BENZTROPINE 1 MG TAB PO SCH ×2 (08:45→20:09)
[2022-03-15] MEDS: PROPRANOLOL 10 MG TAB PO SCH ×3 (08:45→20:09)
[2022-03-15] MEDS: NICOTINE 21MG/24HR 1 EA TRANSDERMAL TD SCH (08:45)
[2022-03-15] MEDS: SERTRALINE HCL 50 MG TAB PO SCH (08:46)
[2022-03-15] MEDS: MAALOX 30 ML SUSP *UDC PO PRN ×2 (11:39→17:31)
[2022-03-15] MEDS: OLANZapine 2.5MG TABLET PO SCH (20:09)
[2022-03-15] MEDS: MIRTAZAPINE 15 MG TAB PO PRN (20:09)
[2022-03-16 06:00] VITALS: BP 98/56
[2022-03-16] MEDS: OLANZapine 2.5MG TABLET PO SCH ×2 (09:03→20:06)
[2022-03-16] MEDS: BENZTROPINE 1 MG TAB PO SCH ×2 (09:03→20:06)
[2022-03-16] MEDS: PROPRANOLOL 10 MG TAB PO SCH ×3 (09:03→20:06)
[2022-03-16] MEDS: NICOTINE 21MG/24HR 1 EA TRANSDERMAL TD SCH (09:04)
[2022-03-16] MEDS: SERTRALINE HCL 50 MG TAB PO SCH (09:04)
[2022-03-16] MEDS: MAALOX 30 ML SUSP *UDC PO PRN ×3 (11:59→21:10)
[2022-03-16] MEDS: ACETAMINOPHEN TAB 650MG DOSE (2X325MG) PO PRN (15:05)
[2022-03-16 17:13] VITALS: BP 115/70
[2022-03-16] MEDS: MIRTAZAPINE 15 MG TAB PO PRN (20:06)
[2022-03-17 06:42] VITALS: BP 100/63
[2022-03-17] MEDS: NICOTINE 21MG/24HR 1 EA TRANSDERMAL TD SCH (08:10)
[2022-03-17] MEDS: SERTRALINE HCL 50 MG TAB PO SCH (08:11)
[2022-03-17] MEDS: PROPRANOLOL 10 MG TAB PO SCH ×3 (08:11→20:22)
[2022-03-17] MEDS: BENZTROPINE 1 MG TAB PO SCH ×2 (08:11→20:23)
[2022-03-17] MEDS: OLANZapine 2.5MG TABLET PO SCH ×2 (08:12→20:22)
[2022-03-17] MEDS: MAALOX 30 ML SUSP *UDC PO PRN ×3 (10:29→19:49)
[2022-03-17 17:29] VITALS: BP 121/74
[2022-03-17] MEDS: ACETAMINOPHEN TAB 650MG DOSE (2X325MG) PO PRN (18:42)
[2022-03-17] MEDS: MIRTAZAPINE 15 MG TAB PO PRN (20:23)
[2022-03-18 06:00] VITALS: BP 121/66
[2022-03-18] MEDS: NICOTINE 21MG/24HR 1 EA TRANSDERMAL TD SCH (08:26)
[2022-03-18 08:27] VITALS: BP 121/66
[2022-03-18] MEDS: OLANZapine 2.5MG TABLET PO SCH (08:27)
[2022-03-18] MEDS: BENZTROPINE 1 MG TAB PO SCH (08:27)
[2022-03-18] MEDS: PROPRANOLOL 10 MG TAB PO SCH (08:27)
[2022-03-18] MEDS: SERTRALINE HCL 50 MG TAB PO SCH (08:27)
[2022-03-18] MEDS ORDERED: PROP10TA56 PO (09:01)
[2022-03-18] MEDS ORDERED: NICO21PAT TD (09:01)
[2022-03-18] MEDS ORDERED: BENZ-52 PO (09:01)
[2022-03-18] MEDS ORDERED: OLAN2.5T25 PO (09:01)
[2022-03-18] MEDS ORDERED: SERT50TA29 PO (09:01)
[2022-03-18] MEDS ORDERED: MIRT-10 PO (09:01)
[2022-03-18] MEDS: MAALOX 30 ML SUSP *UDC PO PRN (09:53)
== END 2022-03-18 13:22 | disposition home or self-care (01) | DRG 751 ==
LOC: M ED 21:23 → M ED INP 03-09 15:16 → M PSY 03-09 17:06
PROVIDERS: ADMIT Student in an Organized Health Care Education/Training Program; ATTEND Student in an Organized Health Care Education/Training Program
DX: F33.1 Major depressive disorder, recurrent, moderate (principal); F11.90 Opioid use, unspecified, uncomplicated; F17.200 Nicotine dependence, unspecified, uncomplicated; E07.9 Disorder of thyroid, unspecified; Z20.822 Contact with and (suspected) exposure to COVID-19; G47.00 Insomnia, unspecified; Z59.00 Homelessness unspecified; R45.851 Suicidal ideations